=== PATIENT | female | born 1990 | race Caucasian/White ===

== ENCOUNTER 2016-07-10 16:51 | Emergency (ER) | payer MEDICAID ==
--- NOTE | 2016-07-10 17:06 | ER Document Report ---
ED Medical Screen (RME) - General Chief Complaint: Sore Throat Stated Complaint: THROAT PAIN Time seen by provider: 17:06 Mode of Arrival: Ambulatory Information source: Patient Notes: 26-year-old female complaining of right-sided sore throat with painful swallowing x 2 days She has also had a fever. Exudative right tonsil No periTonsillar swelling. I have greeted and performed a rapid initial assessment of this patient. A comprehensive ED assessment, evaluation of the patient, analysis of test results , and completion of the medical decision making process will be conducted by additional ED providers. TRAVEL OUTSIDE OF THE U.S. IN LAST 30 DAYS: No - Related Data Allergies/Adverse Reactions: aspirin [Aspirin] Allergy (Intermediate, Verified 04/05/15 13:07) Facial swelling diphenhydramine HCl [From Benadryl] Allergy (Intermediate, Verified 04/05/15 13: 07) Facial swelling Sulfa (Sulfonamide Antibiotics) Allergy (Verified 04/05/15 13:07) unknown Past Medical History - Past Medical History Cardiac Medical History: Reports: Hx Hypertension - with Pulmonary Medical History: Denies: Hx Tuberculosis Renal/ Medical History: Reports: Hx Kidney Stones GI Medical History: Reports: Hx Gastroesophageal Reflux Disease Musculoskeltal Medical History: Reports Hx Musculoskeletal Trauma Psychiatric Medical History: Reports: Hx Anxiety, Hx Bipolar Disorder Denies: Hx Depression Past Surgical History: Reports: Hx Section, Hx Gynecologic Surgery, Hx Kidney (Renal Surgery) - Immunizations Immunizations up to date: Yes Hx Diphtheria, Pertussis, Tetanus Vaccination: Yes Physical Exam - Vital signs Vitals: Temp Pulse Resp BP Pulse Ox 98.4 F 104 H 14 124/86 H 100 07/10/16 16:54 07/10/16 16:54 07/10/16 16:54 07/10/16 16:54 07/10/16 16:54 Course - Vital Signs Vital signs: Temp Pulse Resp BP Pulse Ox 98.4 F 104 H 14 124/86 H 100 07/10/16 16:54 07/10/16 16:54 07/10/16 16:54 07/10/16 16:54 07/10/16 16:54
--- NOTE | 2016-07-10 18:38 | ER Document Report ---
ED General - General Chief Complaint: Sore Throat Stated Complaint: THROAT PAIN Time seen by provider: 18:20 Mode of Arrival: Ambulatory Information source: Patient Notes: 26-year-old female with 2 day history of subjective fever chills sore throat and pain with swallowing. She reports that she occasionally coughs up some material it's a mixture of her clot and white purulent material. She also reports left ear pain for the past 2 days. Patient denies nausea, vomiting, diarrhea, chest pain, abdominal pain, back pain, or dysuria. Physical Exam: General: Alert, appears well. HEENT: Normocephalic. Atraumatic. PERRLA. Extraocular movements intact left tympanic membrane has slight erythema but good landmarks. Right tympanic membranes clear. Canals clear bilaterally. Oropharynx has bright erythema tonsillar swelling and white exudate bilaterally. No stridor horses drooling. Neck: Supple. Mildly tender adenopathy bilaterally no nuchal rigidity Respiratory: No respiratory distress. Clear and equal breath sounds bilaterally. Cardiovascular: Regular rate and rhythm. Abdominal: Normal Inspection. Soft, non-tender. No distension. Normal Bowel Sounds. Back: Non-tender. No deformity or step off. Extremities: Moves all four extremities. Upper extremities: Normal inspection. Non-tender. Normal color. Normal ROM. Normal temperature. Lower extremities: Normal inspection. Non-tender. No edema. Normal color. Normal ROM. Normal temperature. Neurological: Speech clear mentation normal Psychological: Normal affect. Normal Mood. Skin: Warm. Dry. Normal color. TRAVEL OUTSIDE OF THE [place].S[place] IN LAST 30 DAYS: No - Related Data Allergies/Adverse Reactions: aspirin [Aspirin] Allergy (Intermediate, Verified 04/05/15 13:07) Facial swelling diphenhydramine HCl [From Benadryl] Allergy (Intermediate, Verified 04/05/15 13: 07) Facial swelling Sulfa (Sulfonamide Antibiotics) Allergy (Verified 04/05/15 13:07) unknown Past Medical History - General Information source: Patient - Social History Smoking Status: Current Every Day Smoker Family History: Hypertension, Malignancy, Thyroid Disfunction, Other - kidney disease Patient has suicidal ideation: No Patient has homicidal ideation: No - Past Medical History Cardiac Medical History: Reports: Hx Hypertension - with , Other - Patient reports being told she has an enlarged heart and is having further follow-up of that with her physician but she doesn't know her diagnosis Pulmonary Medical History: Denies: Hx Tuberculosis Renal/ Medical History: Reports: Hx Kidney Stones. Denies: Hx Peritoneal Dialysis GI Medical History: Reports: Hx Gastroesophageal Reflux Disease Musculoskeltal Medical History: Reports Hx Musculoskeletal Trauma Psychiatric Medical History: Reports: Hx Anxiety, Hx Bipolar Disorder Denies: Hx Depression Past Surgical History: Reports: Hx Section, Hx Gynecologic Surgery, Hx Kidney (Renal Surgery) - Immunizations Immunizations up to date: Yes Hx Diphtheria, Pertussis, Tetanus Vaccination: Yes Hx Pneumococcal Vaccination: 02/03/14 Review of Systems - Review of Systems Constitutional: See HPI EENT: See HPI Cardiovascular: denies: Chest pain Respiratory: See HPI Gastrointestinal: denies: Abdominal pain, Diarrhea, Nausea, Vomiting Genitourinary: denies: Burning, Dysuria Female Genitourinary: denies: Musculoskeletal: denies: Back pain Skin: denies: Rash Hematologic/Lymphatic: Enlarged lymph nodes, Swollen glands Neurological/Psychological: denies: Weakness, Numbness Physical Exam - Vital signs Vitals: Temp Pulse Resp BP Pulse Ox 98.4 F 104 H 14 124/86 H 100 07/10/16 16:54 07/10/16 16:54 07/10/16 16:54 07/10/16 16:54 07/10/16 16:54 Course - Re-evaluation Re-evalutation: 07/10/16 18:37 Presentation is consistent with acute pharyngitis and given her reported cardiac history with treat her with antibiotics even if the strep test was negative. She reports an allergy to penicillin - Vital Signs Vital signs: Temp Pulse Resp BP Pulse Ox 98.4 F 104 H 14 124/86 H 100 07/10/16 16:54 07/10/16 16:54 07/10/16 16:54 07/10/16 16:54 07/10/16 16:54 Discharge - Discharge Clinical Impression: Pharyngitis Qualifiers: Pharyngitis/tonsillitis etiology: unspecified etiology Qualified Code(s): J02.9 - Acute pharyngitis, unspecified Condition: Stable Disposition: HOME, SELF-CARE Instructions: Sore Throat ([facility]) Additional Instructions: Follow-up with your physician next week for recheck Prescriptions: Azithromycin [Zithromax 250 mg Tablet] 250 mg PO ASDIR PRN #6 tablet PRN Reason:
[2016-07-10] MEDS ORDERED: IBUPROFEN 800 MG TABLET PO ONE (18:42)
[2016-07-10 19:04] VITALS: BP 118/79
== END 2016-07-10 18:55 | disposition home or self-care (01) ==
LOC: ER 16:51
DX: J02.9 Acute pharyngitis, unspecified (principal); R68.83 Chills (without fever); R05 Cough; H92.02 Otalgia, left ear; F17.210 Nicotine dependence, cigarettes, uncomplicated; Z88.6 Allergy status to analgesic agent; Z88.8 Allergy status to other drugs, medicaments and biological substances; Z88.2 Allergy status to sulfonamides; Z88.0 Allergy status to penicillin
CPT/HCPCS: 99282; J3490

== ENCOUNTER 2016-08-20 14:36 | Emergency (ER) | payer OTHER, MEDICAID ==
[2016-08-20 14:48] VITALS: BP 123/74
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
[2016-08-20] MEDS ORDERED: HYDROCODONE/ACETAMINOPHEN 5-325 MG 6 TAB/DSPK PO PRN (16:15)
== END 2016-08-20 16:22 | disposition home or self-care (01) ==
LOC: ER 14:36
DX: S70.01XA Contusion of right hip, initial encounter (principal); S60.221A Contusion of right hand, initial encounter; S39.012A Strain of muscle, fascia and tendon of lower back, initial encounter; F17.200 Nicotine dependence, unspecified, uncomplicated; V49.40XA Driver injured in collision with unspecified motor vehicles in traffic accident, initial encounter; Z88.6 Allergy status to analgesic agent; Z88.2 Allergy status to sulfonamides; Z87.442 Personal history of urinary calculi; K21.9 Gastro-esophageal reflux disease without esophagitis
CPT/HCPCS: 72110; 99284

== ENCOUNTER 2016-10-04 19:21 | Emergency (ER) | payer MEDICAID, OTHER ==
[2016-10-04 19:49] VITALS: BP 124/84
[2016-10-04] MEDS ORDERED: OXYCODONE-ACETAMINOPHEN 5-325 MG TABLET PO ONE (22:48)
[2016-10-04] MEDS ORDERED: BUPIVACAINE HCL 0.5 % INJ/PF 30 ML SDV INJ ONE (22:48)
[2016-10-04] MEDS ORDERED: PENICILLIN V POTASSIUM 500 MG TABLET PO ONE (22:48)
--- NOTE | 2016-10-04 22:50 | ER Document Report ---
HPI - HPI Patient complains to provider of: toothache Pain Level: 3 Context: 18-year-old female presents with fracture to 3 days ago with severe pain has been taking 800 mg of Motrin every 8 hours with minimal relief in her symptoms. Patient denies any fever, chills, drainage, foul odor, aphasia, dyspnea, inability to tolerate p.o. fluids or solids. NKDA to PCN - CARDIOVASCULAR Cardiovascular: DENIES: Chest pain - REPRODUCTIVE LMP: 09/19/16 Reproductive: DENIES: : - DERM Skin Color: Normal, [place] Past Medical History - Social History Smoking Status: Current Every Day Smoker Chew tobacco use (# tins/day): No Frequency of alcohol use: None Drug Abuse: None Family History: Hypertension, Malignancy, Thyroid Disfunction, Other - kidney disease Patient has suicidal ideation: No Patient has homicidal ideation: No - Past Medical History Cardiac Medical History: Reports: Hx Hypertension - with Pulmonary Medical History: Denies: Hx Tuberculosis Renal/ Medical History: Reports: Hx Kidney Stones. Denies: Hx Peritoneal Dialysis GI Medical History: Reports: Hx Gastroesophageal Reflux Disease Musculoskeltal Medical History: Reports Hx Musculoskeletal Trauma Psychiatric Medical History: Reports: Hx Anxiety, Hx Bipolar Disorder Denies: Hx Depression Past Surgical History: Reports: Hx Section, Hx Gynecologic Surgery, Hx Kidney (Renal Surgery) - Immunizations Immunizations up to date: Yes Hx Diphtheria, Pertussis, Tetanus Vaccination: Yes Hx Pneumococcal Vaccination: 02/03/14 Vertical Provider Document - CONSTITUTIONAL Agree With Documented VS: Yes Exam Limitations: No Limitations General Appearance: WD/WN, No Apparent Distress - INFECTION CONTROL TRAVEL OUTSIDE OF THE [place] IN LAST 30 DAYS: No - HEENT HEENT: Atraumatic, Normal ENT Exam, Normocephalic Mouth Diagram: 1 - fx down to nerve root F-15 no evidence of abscess Notes: Uvula midline. Airway patent. No evidence of tonsillar enlargement, peritonsillar abscess, retropharyngeal abscess. - NECK Neck: Normal Inspection, Other - no Evidence of Chucky's angina. negative: Lymphadenopathy-Left, Lymphadenopathy-Right - RESPIRATORY Respiratory: Breath Sounds Normal, No Respiratory Distress, Chest Non-Tender O2 Sat by Pulse Oximetry: 100 - CARDIOVASCULAR Cardiovascular: Regular Rate, Regular Rhythm, No Murmur Course - Re-evaluation Re-evalutation: 10/05/16 07:30 Received a 5 cc submental Sensorcaine block with complete resolution of her symptoms and no complications. No evidence of peritonsillar retropharyngeal abscess. Receiving prescription for p.o. antibiotics and instruction to follow- up with dentist - Vital Signs Vital signs: Temp Pulse Resp BP Pulse Ox 98.3 F 74 18 124/84 100 10/04/16 19:47 10/04/16 19:47 10/04/16 19:47 10/04/16 19:47 10/04/16 19:47 Procedures - Additional Procedures dental block Additional Procedures: Other - dental block 5 cc sensorcaine buccal block for tooth 15 Discharge - Discharge Clinical Impression: Tooth ache Condition: Good Disposition: HOME, SELF-CARE Instructions: [facility], Penicillin V K (OM), Oral Narcotic Medication (OM), Toothache ([facility]) Additional Instructions: [facility] [address] [place], [place] Saturday mornings, by appointment [facility] [address] [place] [address] [facility] [address] [facility] [address] [facility] [address] [email or web address] [address] [place] [address] Saturday- 8:00am to 5:00 pm Will see patients from other [facility]. Charges based on income and family size and accepts Medicare, Medicaid, and Insurances Will pull molars [facility] [id number] Hours of Operation 8:00 am - 4:30 pm weekdays The following dental offices accept Medicaid: [facility] [place] Dr. Guti[address]rez Dr. King Dr. [place] Dr. Foley Long Fernandez, Franca, and Deanne oral surgery Dr. Childs ([place]) Dr. Monge ([place]) [facility] Drs. Britton and Jonathan ([place]) Dr. Ingram ([place]) [facility] Dr. Poe ([place]) Drs. Gr and ([place]) Medicaid Care Line Prescriptions: Oxycodone HCl/Acetaminophen [Percocet 5-325 mg Tablet] 1 - 2 tab PO Q4H PRN #15 tablet PRN Reason: Penicillin V Potassium [Penicillin Vk 500 mg Tablet] 500 mg PO BID #20 tablet Referrals: JENNIFER SIEGEL MD [Primary Care Provider] - Follow up as needed
== END 2016-10-04 22:56 | disposition home or self-care (01) ==
LOC: ER 19:21
PROC: 3E0T3BZ Introduction of Anesthetic Agent into Peripheral Nerves and Plexi, Percutaneous Approach (ICD-10-PCS; principal; 2016-10-04)
DX: K08.9 Disorder of teeth and supporting structures, unspecified (principal); F17.200 Nicotine dependence, unspecified, uncomplicated; Z87.442 Personal history of urinary calculi; K21.9 Gastro-esophageal reflux disease without esophagitis; Z79.899 Other long term (current) drug therapy
CPT/HCPCS: 99282; 64400; J3490

== ENCOUNTER → 2016-12-03 | Outpatient (CLI) | payer MEDICAID | LOC: LAB 11:26 | PROVIDERS: ATTEND Pediatrics | DX: Z32.01 Encounter for pregnancy test, result positive (principal) | CPT/HCPCS: 36415; 84703 ==

== ENCOUNTER 2016-12-09 12:26 | Emergency (ER) | payer MEDICAID ==
[2016-12-09 12:46] VITALS: BP 137/70
[2016-12-09] MEDS ORDERED: ACETAMINOPHEN SOLN 325 MG/10.15 ML UDCUP PO ONE (13:29)
[2016-12-09] MEDS ORDERED: LIDOCAINE 2% VISCOUS SOLN 20 ML UDCUP PO ONE (13:30)
--- NOTE | 2016-12-09 14:11 | ER Document Report ---
ED ENT - General Chief Complaint: throat pain Stated Complaint: THROAT PAIN,FEVER Time Seen by Provider: 12/09/16 13:23 Notes: Patient is a 18 week 26-year-old female who presents emergency department complaining of sore throat for the past 2 days. Patient admits to difficulty swallowing and swollen throat for the past 2 days. Patient states that she has not seen her primary care provider regarding this. Denies any sick contacts at home. States she is able to tolerate swallowing liquids but solids are too painful. Denies any difficulty breathing. Has been trying to take Tylenol but cannot swallow the pills. Otherwise patient is on Suboxone through pain management. TRAVEL OUTSIDE OF THE [place].S[place] IN LAST 30 DAYS: No - Related Data Allergies/Adverse Reactions: aspirin [Aspirin] Allergy (Intermediate, Verified 12/09/16 12:46) Facial swelling diphenhydramine HCl [From Benadryl] Allergy (Intermediate, Verified 12/09/16 12: 46) Facial swelling Sulfa (Sulfonamide Antibiotics) Allergy (Verified 12/09/16 12:46) unknown Past Medical History - Social History Smoking Status: Current Every Day Smoker Family History: Hypertension, Malignancy, Thyroid Disfunction, Other - kidney disease Patient has suicidal ideation: No Patient has homicidal ideation: No - Past Medical History Cardiac Medical History: Reports: Hx Hypertension - with Pulmonary Medical History: Denies: Hx Tuberculosis Renal/ Medical History: Reports: Hx Kidney Stones. Denies: Hx Peritoneal Dialysis GI Medical History: Reports: Hx Gastroesophageal Reflux Disease Musculoskeltal Medical History: Reports Hx Musculoskeletal Trauma Psychiatric Medical History: Reports: Hx Anxiety, Hx Bipolar Disorder Denies: Hx Depression Past Surgical History: Reports: Hx Section, Hx Gynecologic Surgery, Hx Kidney (Renal Surgery) - Immunizations Immunizations up to date: Yes Hx Diphtheria, Pertussis, Tetanus Vaccination: Yes Hx Pneumococcal Vaccination: 02/03/14 Review of Systems - Review of Systems Constitutional: No symptoms reported EENT: See HPI Cardiovascular: No symptoms reported Respiratory: No symptoms reported Gastrointestinal: No symptoms reported Genitourinary: No symptoms reported Female Genitourinary: No symptoms reported Musculoskeletal: No symptoms reported -: Yes All other systems reviewed and negative Physical Exam - Vital signs Vitals: Temp Pulse Resp BP Pulse Ox 98.9 F 109 H 16 137/70 H 100 12/09/16 12:40 12/09/16 12:40 12/09/16 12:40 12/09/16 12:40 12/09/16 12:40 - Notes Notes: PHYSICAL EXAM GENERAL: Alert, interacts well. HEAD: Normocephalic, atraumatic. EYES: Pupils equal, round, and reactive to light. Extraocular movements intact. ENT: Oral mucosa moist, tongue midline. Uvula midline. Evidence of pharyngeal erythema with tonsillar exudates. Airway patent. No evidence of tonsillar enlargement, peritonsillar abscess, retropharyngeal abscess. NECK: Full range of motion. Supple. Trachea midline. LUNGS: Clear to auscultation bilaterally, no wheezes, rales, or rhonchi. No respiratory distress. HEART: Regular rate and rhythm. No murmurs, gallops, or rubs. ABDOMEN: Soft, nondistended, nontender. No guarding, rebound, or rigidity.. Bowel sounds present in all 4 quadrants. EXTREMITIES: Moves all 4 extremities spontaneously. No edema, radial and dorsalis pedis pulses 2/4 bilaterally. No cyanosis. NEUROLOGICAL: Alert and oriented x4. Normal speech. PSYCH: Normal affect, normal mood. SKIN: Warm, dry, normal turgor. No rashes or lesions noted. Course - Re-evaluation Re-evalutation: 12/09/16 14:29 Patient is a 26-year-old female hemodynamically stable, no acute distress and afebrile. Patient tested positive for strep on her rapid strep test. Patient tolerating fluids without any difficulty no concern at this time for retropharyngeal or peritonsillar abscess. Airway is patent. Patient treated with penicillin G IM and discharged home to take [id number] Tylenol for pain. Patient given strict return precautions and otherwise to follow-up with the health department. Patient agrees with plan. - Vital Signs Vital signs: Temp Pulse Resp BP Pulse Ox 98.9 F 109 H 16 137/70 H 100 12/09/16 12:40 12/09/16 12:40 12/09/16 12:40 12/09/16 12:40 12/09/16 12:40 Discharge - Discharge Clinical Impression: Strep pharyngitis Condition: Good Disposition: HOME, SELF-CARE Instructions: Strep Throat ([facility]) Additional Instructions: You have been treated with a dose of antibiotics in shot form which is all you will require for treatment Please return to emergency department if your symptoms worsen, difficulty tolerating solids and liquids. Please take your medications as prescribed Prescriptions: Lidocaine HCl [Xylocaine Viscous] 5 ml PO Q6H PRN #100 ml PRN Reason: Referrals: [facility]ALTH [facility] [NO LOCAL MD] - Follow up in 3-5 days (For an OB appointment)
[2016-12-09] MEDS ORDERED: PENICILLIN G BENZATHINE 1.2 MILLION UNIT/2 ML DISP.SYRIN IM ONE (14:27)
== END 2016-12-09 15:06 | disposition home or self-care (01) ==
LOC: ER 12:26
DX: O99.512 Diseases of the respiratory system complicating pregnancy, second trimester (principal); J02.0 Streptococcal pharyngitis; O99.332 Smoking (tobacco) complicating pregnancy, second trimester; Z3A.20 20 weeks gestation of pregnancy; Z79.891 Long term (current) use of opiate analgesic
CPT/HCPCS: 99283; 96372; 87880; J3490 ×2; J0561

== ENCOUNTER 2017-02-02 00:06 | Emergency (ER) | payer MEDICAID ==
[2017-02-02] MEDS ORDERED: NORMAL SALINE 1000 ML 1,000 ML IV PRN (00:50)
[2017-02-02] MEDS ORDERED: IBUPROFEN 600 MG TABLET PO ONE (00:50)
--- NOTE | 2017-02-02 00:56 | ER Document Report ---
ED Fever - General Chief Complaint: Fever Stated Complaint: POSSIBLE FEVER AND WEAKNESS Time Seen by Provider: 02/02/17 00:48 Notes: The patient is a 26-year-old female, past medical history multiple UTIs, history of prescription drug abuse (being tapered off Suboxone now), D&C for fetus without heart beat 1 month ago, presents with 4 days of fever up to 103. She is taking Tylenol every 4 hours with improvement of her fever to 101. She has not had much to eat or drink due to fatigue. She denies history of IVDA, rash, nausea, vomiting, abdominal pain, neck stiffness, headache, sore throat, chest pain, shortness of breath, cough, recent travel, dysuria, flank pain, diarrhea or back pain. TRAVEL OUTSIDE OF THE [place] IN LAST 30 DAYS: No - Related Data Allergies/Adverse Reactions: aspirin [Aspirin] Allergy (Intermediate, Verified 12/09/16 12:46) Facial swelling diphenhydramine HCl [From Benadryl] Allergy (Intermediate, Verified 12/09/16 12: 46) Facial swelling Sulfa (Sulfonamide Antibiotics) Allergy (Verified 12/09/16 12:46) unknown Past Medical History - General Information source: Patient - Social History Smoking Status: Current Every Day Smoker Frequency of alcohol use: None Drug Abuse: Prescription drugs - in the past Family History: Hypertension, Malignancy, Thyroid Disfunction, Other - kidney disease Patient has suicidal ideation: No Patient has homicidal ideation: No - Past Medical History Cardiac Medical History: Reports: Hx Hypertension - with Pulmonary Medical History: Denies: Hx Tuberculosis Renal/ Medical History: Reports: Hx Kidney Stones. Denies: Hx Peritoneal Dialysis GI Medical History: Reports: Hx Gastroesophageal Reflux Disease Musculoskeltal Medical History: Reports Hx Musculoskeletal Trauma Psychiatric Medical History: Reports: Hx Anxiety, Hx Bipolar Disorder Denies: Hx Depression Past Surgical History: Reports: Hx Section, Hx Gynecologic Surgery, Hx Kidney (Renal Surgery) - Immunizations Immunizations up to date: Yes Hx Diphtheria, Pertussis, Tetanus Vaccination: Yes Hx Pneumococcal Vaccination: 02/03/14 Review of Systems - Review of Systems Notes: REVIEW OF SYSTEMS: CONSTITUTIONAL: +fevers, -chills EENT: -eye pain, -difficulty swallowing, -nasal congestion CARDIOVASCULAR:-chest pain, -syncope. RESPIRATORY: -cough, -SOB GASTROINTESTINAL: -abdominal pain, -nausea, -vomiting, -diarrhea GENITOURINARY: -dysuria, -hematuria MUSCULOSKELETAL: -back pain, -neck pain SKIN: -rash or skin lesions. HEMATOLOGIC: -easy bruising or bleeding. LYMPHATIC: -swollen, enlarged glands. NEUROLOGICAL: -altered mental status or loss of consciousness, -headache, - neurologic symptoms PSYCHIATRIC: -anxiety, -depression. ALL OTHER SYSTEMS REVIEWED AND NEGATIVE. Physical Exam - Vital signs Vitals: Temp Pulse BP Pulse Ox 101.3 F H 118 H 122/78 98 02/02/17 00:15 02/02/17 00:15 02/02/17 00:15 02/02/17 00:15 - Notes Notes: PHYSICAL EXAMINATION: GENERAL: Well-appearing, well-nourished and in no acute distress. HEAD: Atraumatic, normocephalic. EYES: Pupils equal round and reactive to light, extraocular movements intact, sclera anicteric, conjunctiva are normal. ENT: nares patent, oropharynx clear without exudates. Moist mucous membranes. NECK: Normal range of motion, supple without lymphadenopathy, no neck stiffness LUNGS: Breath sounds clear to auscultation bilaterally and equal. No wheezes rales or rhonchi. HEART: Tachycardia, regular rhythm ABDOMEN: Soft, nontender, normoactive bowel sounds. No guarding, no rebound. No masses appreciated. EXTREMITIES: Normal range of motion, no pitting or edema. No cyanosis. NEUROLOGICAL: Cranial nerves grossly intact. Normal speech, normal gait. Normal sensory and motor exams. PSYCH: Normal mood, normal affect. SKIN: Warm, Dry, normal turgor, no rashes or lesions noted. Course - Re-evaluation Re-evalutation: Patient appears very well. Her chest x-ray does not show any signs of pneumonia. Lactate and blood pressure are normal. She has no history of IVDA and no murmur heard on exam to suggest endocarditis. Patient has dysuria with some WBCs. We will treat her with Macrobid and have her follow-up with her primary care physician tomorrow for further evaluation and treatment. Given very strict return precautions and she understands. - Vital Signs Vital signs: Temp Pulse Resp BP Pulse Ox 101.8 F H 101 H 16 119/62 100 02/02/17 04:12 02/02/17 04:12 02/02/17 04:12 02/02/17 04:12 02/02/17 04:12 - Laboratory Result Diagrams: 02/02/17 00:40 02/02/17 00:40 Laboratory results interpreted by me: 02/02/17 02/02/17 02/02/17 00:40 00:40 00:40 WBC 13.5 H Hgb 11.2 L Hct 33.3 L MCV 79 L MCH 26.4 L RDW 17.5 H Seg Neutrophils % 82.0 H Lymphocytes % 6.8 L Absolute Neutrophils 11.0 H Absolute Monocytes 1.5 H VBG pH 7.49 H VBG pCO2 34.6 L Sodium 135.8 L Potassium 3.1 L BUN 6 L Glucose 121 H Direct Bilirubin 0.5 H Lipase 22.7 L Urine Protein Urine Ketones Urine Blood Urine Urobilinogen Ur Leukocyte Esterase 02/02/17 04:05 WBC Hgb Hct MCV MCH RDW Seg Neutrophils % Lymphocytes % Absolute Neutrophils Absolute Monocytes VBG pH VBG pCO2 Sodium Potassium BUN Glucose Direct Bilirubin Lipase Urine Protein 30 H Urine Ketones 20 H Urine Blood MODERATE H Urine Urobilinogen 4.0 H Ur Leukocyte Esterase TRACE H - Diagnostic Test Radiology reviewed: Image reviewed, Reports reviewed Radiology results interpreted by me: CXR: NAD Discharge - Discharge Clinical Impression: Dysuria Fever Qualifiers: Fever type: unspecified Qualified Code(s): R50.9 - Fever, unspecified Condition: Stable Disposition: HOME, SELF-CARE Additional Instructions: FEVER: Fever is the body's reaction to infection. Fever can also occur with illnesses that create fever-producing substances in the body. By itself, fever is not harmful. It helps the body fight invading germs. We are more concerned with: (1) What's causing the fever? (2) How can we keep you more comfortable until the fever goes away? Early in an illness, symptoms are often so vague that a diagnosis can't be made. If the doctor hasn't identified a clear cause for your fever, you will probably develop new symptoms within the next two days. Contact the doctor if you develop severe worsening headache, rash, chest pain, cough with yellow or green sputum, difficulty breathing, abdominal pain, or other new symptoms. There is no reason to treat a fever if you're comfortable. If the fever is causing aches, headache, and fatigue, you can treat it with ibuprofen (Advil , Nuprin, etc) or acetaminophen (Tylenol). Follow the directions on the bottle. Get plenty of liquids (three quarts per day). Rest. Physical work or sports will raise the temperature higher and make you feel much worse. Dress lightly. If you're chilling, this means the temperature is trying to go higher. Take ibuprofen or acetaminophen. When you feel sweaty and "feverish" the temperature is coming down. If the fever doesn't go away within two days or if you become more ill, call the doctor or return at once for re-examination. NORMAL EXAM AND WORKUP: At this time, with the exception of fever, your examination and workup show no significant abnormality. No significant abnormal physical findings were noted. All laboratory, EKG, and imaging (x-ray, CT scans, ultrasound) studies that were ordered show no significant abnormality. Although your examination and all studies that were ordered showed no significant abnormal finding, there are no examinations and no studies that are 100% accurate. There is always the possibility that some abnormality could exist and not be detected with physical examination or within the limits and capabilities of laboratory and other studies. You should return or follow up as you were instructed on your visit today for further evaluation if your symptoms do not resolve. VIRAL SYNDROME: The physician has diagnosed a likely viral infection. Viruses not only cause "colds," but can cause many different symptoms including generalized aching, fever, headache, cough, diarrhea, nausea, vomiting, and fatigue. The treatment, for the most part, is simply relief of symptoms. This means that antibiotics are usually not given. Rest, fluids, pain medications and, occasionally, medication for the specific symptoms that are most bothersome will be prescribed. Use good handwashing to avoid passing the virus to others. Shared toys should be cleaned with disinfectant. Clean the toilets, sinks, and counter surfaces in bathrooms. Launder clothing in hot water. Contact the physician if you develop any new or unusual symptoms such as severe headache, stiff neck, high fever, chest pain, productive cough, or shortness of breath. You should be rechecked if you don't see marked improvement within seven to 10 days. USE OF ACETAMINOPHEN (Tylenol): Acetaminophen may be taken for pain relief or fever control. It's much safer than aspirin, offering a wider range of "safe" dosages. It is safe during . Some brand names are Tylenol, Panadol, Datril, Anacin 3, Tempra, and Liquiprin. Acetaminophen can be repeated every four hours. The following are maximum recommended dosages: WEIGHT Dose Drops Elixir Chewable( 80mg) (LBS.) drprs=droppers tsp=teaspoon 6 40 mg 0.4 ml (1/2) 6-11 80 mg 0.8 ml (full) tsp 1 tab 12-16 120 mg 1 1/2 drprs 3/4 tsp 1 1/2 tabs 17-23 160 mg 2 drprs 1 tsp 2 tabs 24-30 240 mg 3 drprs 1 1/2 tsp 3 tabs 30-35 320 mg 2 tsp 4 tabs 36-41 360 mg 2 1/4 tsp 4 1/2 tabs 42-47 400 mg 2 1/2 tsp 5 tabs 48-53 480 mg 3 tsp 6 tabs 54-59 520 mg 3 1/4 tsp 6 1/2 tabs 60-64 560 mg 3 1/2 tsp 7 tabs 65-70 600 mg 3 3/4 tsp 7 1/2 tabs 71-76 640 mg 4 tsp 8 tabs 77-82 720 mg 4 1/2 tsp 9 tabs 83-88 800 mg 5 tsp 10 tabs >89 pounds or adults 650 mg to 900 mg Acetaminophen can be repeated every four hours. Maximum dose not to exceed 4000 mg a day. These maximum recommended dosages are slightly higher than the dosages written on the product container, but these dosages are very safe and below the toxic dosage for acetaminophen. FOLLOW-UP CARE: If you have been referred to a physician for follow-up care, call the physician s office for an appointment as you were instructed or within the next two days. If you experience worsening or a significant change in your symptoms, notify the physician immediately or return to the Emergency Department at any time for re-evaluation. URINARY TRACT INFECTION: Your evaluation indicates that you have a urinary tract infection. This is due to germs growing in the bladder. This is a common problem. This infection usually responds quickly to antibiotics. Your antibiotic should be taken exactly as prescribed. Drink plenty of fluids -- three to four quarts a day. Occasionally, a bladder anesthetic will be prescribed to help stop the feeling of urgency until the antibiotic has a chance to clear the infection. This may cause your urine to be dark orange. Certain urine infections require a culture. If the doctor obtained a culture, the results will be back in two days. You should call to see if a change in treatment is needed. A repeat urinalysis after you finish treatment is often recommended. The physician will let you know if further testing is required. Call the doctor if you develop fever, chills, flank pain, inability to urinate, or blood in the urine. ANTIBIOTIC THERAPY: You have been given an antibiotic prescription. It's important that you take all the medication, unless instructed otherwise by your physician. Failure to complete the entire course can result in relapse of your condition. Common side effects of antibiotics include nausea, intestinal cramping, or diarrhea. Women may develop vaginal yeast infections, and babies can get yeast (thrush) in the mouth following the use of antibiotics. Contact your physician if you develop significant side effects from this medication. Allergy to this antibiotic can result in hives, wheezing, faintness, or itching. If symptoms of allergy occur, stop the medication and call the doctor. NITROFURANTOIN (MACRODANTIN, MACROBID): You have received a prescription for nitrofurantoin (Macrodantin). This antibiotic is used for urinary tract infections. Women who are or nursing should notify the physician before taking this medicine. If you have ever had a problem caused by this medication in the past, be sure the physician is aware of it. Common side effects of this medicine include nausea, vomiting, or decreased appetite. Notify your physician if these side effects become severe. Immediately stop this medicine and call the physician if you develop cough , shortness of breath, chest pain, weakness, jaundice (yellow color of the skin and whites of the eyes), or a skin rash. FOLLOW-UP CARE: If you have been referred to a physician for follow-up care, call the physician s office for an appointment as you were instructed or within the next two days. If you experience worsening or a significant change in your symptoms, notify the physician immediately or return to the Emergency Department at any time for re-evaluation. Prescriptions: Nitrofurantoin/Nitrofuran Mac [Macrobid 100 mg Capsule] 1 tab PO BID #10 capsule Referrals: HARSHIL ADAME MD [Primary Care Provider] - Follow up as needed
[2017-02-02 01:01] LABS: ABSOLUTE LYMPHOCYTES (AUTO) 0.9 10^3/uL (0.5-4.7); ABSOLUTE MONOCYTES (AUTO) 1.5 10^3/uL (0.1-1.4); BASOPHILS % (AUTO) 0.1 % (0-2); HEMATOCRIT 33.3 % (36.0-47.0); HEMOGLOBIN 11.2 g/dL (12.0-15.5); HGB HCT DIFFERENCE 0.3; LYMPHOCYTES % (AUTO) 6.8 % (13-45); MEAN CORPUSCULAR HEMOGLOBIN 26.4 pg (27.0-33.4); MEAN CORPUSCULAR HGB CONC 33.6 g/dL (32.0-36.0); MEAN CORPUSCULAR VOLUME 79 fl (80-97); MONOCYTES % (AUTO) 11.1 % (3-13); RED BLOOD COUNT 4.24 10^6/uL (3.72-5.28); RED CELL DISTRIBUTION WIDTH 17.5 % (11.5-14.0); WHITE BLOOD COUNT 13.5 10^3/uL (4.0-10.5)
[2017-02-02 01:11] LABS: VENOUS BLOOD BASE EXCESS 2.7 mmol/L; VENOUS BLOOD HCO3 25.6 mmol/L (20-32); VENOUS BLOOD PCO2 34.6 mmHg (35-63); VENOUS BLOOD PH 7.49 (7.30-7.42)
[2017-02-02 01:16] LABS: ALANINE AMINOTRANSFERASE 26 U/L (9-52); ALBUMIN 4.1 g/dL (3.5-5.0); ALKALINE PHOSPHATASE 89 U/L (38-126); ANION GAP 13 (5-19); ASPARTATE AMINO TRANSFERASE 16 U/L (14-36); BILIRUBIN,DIRECT 0.5 mg/dL (0.0-0.4); BILIRUBIN,TOTAL 0.9 mg/dL (0.2-1.3); BLOOD UREA NITROGEN 6 mg/dL (7-20); CALCIUM 9.1 mg/dL (8.4-10.2); CARBON DIOXIDE 23 mmol/L (22-30); CHLORIDE 100 mmol/L (98-107); CREATINE KINASE 44 U/L (30-135); CREATININE RESULT 0.56 mg/dL (0.52-1.25); GLUCOSE 121 mg/dL (75-110); LIPASE 22.7 U/L (23-300); POTASSIUM 3.1 mmol/L (3.6-5.0); SODIUM 135.8 mmol/L (137-145); TOTAL PROTEIN 7.3 g/dL (6.3-8.2)
[2017-02-02] MEDS ORDERED: POTASSIUM CHLORIDE 10 MEQ TABLET.SA PO ONE (01:22)
[2017-02-02 04:13] VITALS: BP 119/62
[2017-02-02 04:24] LABS: APPEARANCE,URINE SLIGHTLY-CLOUDY; BILIRUBIN,URINE NEGATIVE (NEGATIVE); GLUCOSE, URINE NEGATIVE (NEGATIVE); KETONES,URINE 20 mg/dL (NEGATIVE); LEUKOCYTE ESTERASE,URINE TRACE (NEGATIVE); NITRITE,URINE NEGATIVE (NEGATIVE); PROTEIN,URINE 30 mg/dL (NEGATIVE); URINE SPECIFIC GRAVITY 1.019
--- NOTE | 2017-02-02 04:52 | RADIOLOGY REPORT (SQ) ---
EXAM DESCRIPTION: CHEST SINGLE VIEW COMPLETED DATE/TIME: 02/02/2017 4:18 am REASON FOR STUDY: fever, cough COMPARISON: 6.7.16 EXAM PARAMETERS: NUMBER OF VIEWS: One view. TECHNIQUE: Single frontal radiographic view of the chest acquired. RADIATION DOSE: NA LIMITATIONS: None. FINDINGS: LUNGS AND PLEURA: No opacities, masses or pneumothorax. No pleural effusion. MEDIASTINUM AND HILAR STRUCTURES: No masses. Contour normal. HEART AND VASCULAR STRUCTURES: Heart normal in size. Normal vasculature. BONES: No acute findings. HARDWARE: None in the chest. OTHER: No other significant finding. IMPRESSION: NO ACUTE RADIOGRAPHIC FINDING IN THE CHEST. TECHNICAL DOCUMENTATION: JOB ID: [id number]
[2017-02-02] MEDS ORDERED: ACETAMINOPHEN 325 MG TABLET PO ONE (05:04)
[2017-02-02] MEDS ORDERED: NITROFURANTOIN MONOHYD/M-CRYST 100 MG CAPSULE PO ONE (05:04)
== END 2017-02-02 05:43 | disposition home or self-care (01) ==
LOC: ER 00:06
DX: R30.0 Dysuria (principal); R50.9 Fever, unspecified; R53.1 Weakness; Z79.899 Other long term (current) drug therapy; F17.200 Nicotine dependence, unspecified, uncomplicated
CPT/HCPCS: 99283; 36415; 87086; 82550; 84702; 83690; 85025; 87088; 80053; 81001; 87186; 82803; 83605; 87804; 71010; J3490 ×2; J8499

== ENCOUNTER 2017-02-03 10:29 | Emergency (ER) | payer MEDICAID ==
[2017-02-03] MEDS ORDERED: IBUPROFEN 600 MG TABLET PO ONE (10:51)
[2017-02-03] MEDS ORDERED: NORMAL SALINE 1000 ML 1,000 ML IV ONE (10:51)
--- NOTE | 2017-02-03 10:52 | ER Document Report ---
ED Medical Screen (RME) - General Stated Complaint: FEVER Time Seen by Provider: 02/03/17 10:47 Mode of Arrival: Wheelchair Information source: Patient TRAVEL OUTSIDE OF THE [place] IN LAST 30 DAYS: No - HPI Patient complains to provider of: Fever Notes: 02/03/17 10:52 Patient is a 26-year-old female presenting to the emergency room today complaining of fever 1 weeks duration with body aches, nausea, intermittent chest pain, seen in this emergency room on 02/02/2017 for similar complaints, states that she has not been feeling any better despite taking antibiotics that were prescribed - Related Data Allergies/Adverse Reactions: aspirin [Aspirin] Allergy (Intermediate, Verified 12/09/16 12:46) Facial swelling diphenhydramine HCl [From Benadryl] Allergy (Intermediate, Verified 12/09/16 12: 46) Facial swelling Sulfa (Sulfonamide Antibiotics) Allergy (Verified 12/09/16 12:46) unknown Past Medical History - Past Medical History Cardiac Medical History: Reports: Hx Hypertension - with Pulmonary Medical History: Denies: Hx Tuberculosis Renal/ Medical History: Reports: Hx Kidney Stones. Denies: Hx Peritoneal Dialysis GI Medical History: Reports: Hx Gastroesophageal Reflux Disease Musculoskeltal Medical History: Reports Hx Musculoskeletal Trauma Psychiatric Medical History: Reports: Hx Anxiety, Hx Bipolar Disorder Denies: Hx Depression Past Surgical History: Reports: Hx Section, Hx Gynecologic Surgery, Hx Kidney (Renal Surgery) - Immunizations Immunizations up to date: Yes Hx Diphtheria, Pertussis, Tetanus Vaccination: Yes Physical Exam - Vital signs Vitals: Temp Pulse Resp BP Pulse Ox 101.2 F H 119 H 16 148/81 H 99 02/03/17 10:51 02/03/17 10:51 02/03/17 10:51 02/03/17 10:51 02/03/17 10:51 Course - Vital Signs Vital signs: Temp Pulse Resp BP Pulse Ox 101.2 F H 119 H 16 148/81 H 99 02/03/17 10:51 02/03/17 10:51 02/03/17 10:51 02/03/17 10:51 02/03/17 10:51
[2017-02-03 11:56] LABS: ABSOLUTE EOSINOPHILS # (AUTO) 0.1 10^3/uL (0.0-0.6); ABSOLUTE NEUT (AUTO) 6.4 10^3/uL (1.7-8.2); BASOPHILS % (AUTO) 0.1 % (0-2); EOSINOPHILS % (AUTO) 0.6 % (0-6); HEMATOCRIT 32.7 % (36.0-47.0); HEMOGLOBIN 10.9 g/dL (12.0-15.5); MEAN CORPUSCULAR HEMOGLOBIN 26.4 pg (27.0-33.4); MEAN CORPUSCULAR HGB CONC 33.2 g/dL (32.0-36.0); MEAN CORPUSCULAR VOLUME 79 fl (80-97); MONOCYTES % (AUTO) 11.7 % (3-13); RED BLOOD COUNT 4.11 10^6/uL (3.72-5.28); RED CELL DISTRIBUTION WIDTH 17.1 % (11.5-14.0); SEGMENTED NEUTROPHILS % (AUTO) 75.6 % (42-78); WHITE BLOOD COUNT 8.4 10^3/uL (4.0-10.5)
[2017-02-03 12:12] LABS: ALANINE AMINOTRANSFERASE 24 U/L (9-52); ALBUMIN 3.7 g/dL (3.5-5.0); ALKALINE PHOSPHATASE 85 U/L (38-126); ANION GAP 12 (5-19); ASPARTATE AMINO TRANSFERASE 15 U/L (14-36); BILIRUBIN,DIRECT 0.5 mg/dL (0.0-0.4); BILIRUBIN,TOTAL 0.5 mg/dL (0.2-1.3); BLOOD UREA NITROGEN 5 mg/dL (7-20); CALCIUM 9.1 mg/dL (8.4-10.2); CARBON DIOXIDE 25 mmol/L (22-30); CHLORIDE 102 mmol/L (98-107); CREATINE KINASE 34 U/L (30-135); CREATININE RESULT 0.49 mg/dL (0.52-1.25); GLUCOSE 133 mg/dL (75-110); POTASSIUM 3.2 mmol/L (3.6-5.0); SODIUM 138.7 mmol/L (137-145); TOTAL PROTEIN 6.9 g/dL (6.3-8.2)
[2017-02-03 12:26] LABS: CREATINE KINASE MB < 0.22 ng/mL (<4.55); TROPONIN I < 0.012 ng/mL
[2017-02-03 12:32] LABS: VENOUS BLOOD BASE EXCESS 1.3 mmol/L; VENOUS BLOOD HCO3 26.4 mmol/L (20-32); VENOUS BLOOD PCO2 43.7 mmHg (35-63); VENOUS BLOOD PH 7.4 (7.30-7.42)
--- NOTE | 2017-02-03 12:34 | ER Document Report ---
ED General - General Chief Complaint: Fever Stated Complaint: FEVER Time Seen by Provider: 02/03/17 10:47 Mode of Arrival: Wheelchair Information source: Patient Notes: This is a 26-year-old female who presents to the emergency room with nausea, vomiting, fever, weakness, fatigue for the past 1 week. Patient does state she is has a history of narcolepsy but is currently on no medicines. She is 4 para 3 and had a termination of 1 month ago in [place] for demise. She states that she did well after that termination and has not had any abdominal pain. She does take Suboxone (half a day). She was in the emergency room 1 day ago and was placed on nitrofurantoin for UTI. She presents with persistent symptoms. TRAVEL OUTSIDE OF THE [place] IN LAST 30 DAYS: No - HPI Onset: Last week Onset/Duration: Gradual Quality of pain: Dull Severity: Moderate Pain Level: 2 Associated symptoms: Diarrhea, Fever, Nausea, Vomiting. denies: Chest pain, Shortness of breath Exacerbated by: Denies Relieved by: Denies Similar symptoms previously: Yes Recently seen / treated by doctor: Yes - Related Data Allergies/Adverse Reactions: aspirin [Aspirin] Allergy (Intermediate, Verified 12/09/16 12:46) Facial swelling diphenhydramine HCl [From Benadryl] Allergy (Intermediate, Verified 12/09/16 12: 46) Facial swelling Sulfa (Sulfonamide Antibiotics) Allergy (Verified 12/09/16 12:46) unknown Past Medical History - General Information source: Patient - Social History Smoking Status: Current Every Day Smoker Cigarette use (# per day): No Chew tobacco use (# tins/day): No Frequency of alcohol use: None Drug Abuse: None Lives with: Family Family History: Hypertension, Malignancy, Thyroid Disfunction, Other - kidney disease Patient has suicidal ideation: No Patient has homicidal ideation: No - Past Medical History Cardiac Medical History: Reports: Hx Hypertension - with Pulmonary Medical History: Denies: Hx Tuberculosis Renal/ Medical History: Reports: Hx Kidney Stones. Denies: Hx Peritoneal Dialysis GI Medical History: Reports: Hx Gastroesophageal Reflux Disease Musculoskeltal Medical History: Reports Hx Musculoskeletal Trauma Psychiatric Medical History: Reports: Hx Anxiety, Hx Bipolar Disorder Denies: Hx Depression Past Surgical History: Reports: Hx Section, Hx Gynecologic Surgery, Hx Kidney (Renal Surgery) - Immunizations Immunizations up to date: Yes Hx Diphtheria, Pertussis, Tetanus Vaccination: Yes Hx Pneumococcal Vaccination: 02/03/14 Review of Systems - Review of Systems Constitutional: Chills, Fever EENT: No symptoms reported Cardiovascular: No symptoms reported Respiratory: Cough Gastrointestinal: See HPI Genitourinary: See HPI Female Genitourinary: No symptoms reported. denies: Vaginal discharge - Is, Vaginal bleeding, Vaginal odor Musculoskeletal: No symptoms reported Skin: No symptoms reported Hematologic/Lymphatic: No symptoms reported Neurological/Psychological: See HPI Physical Exam - Vital signs Vitals: Temp Pulse Resp BP Pulse Ox 101.2 F H 119 H 16 148/81 H 99 02/03/17 10:51 02/03/17 10:51 02/03/17 10:51 02/03/17 10:51 02/03/17 10:51 Notes: Physical exam: GENERAL: Does not appear to be in significant distress. She does appear comfortable. HEAD: Atraumatic, normocephalic. EYES: Pupils equal round and reactive to light, extraocular movements intact, sclera anicteric, conjunctiva are normal. ENT: TMs normal, nares patent, oropharynx clear without exudates. Moist mucous membranes. NECK: Normal range of motion, supple without obvious mass or JVD. LUNGS: Breath sounds clear to auscultation bilaterally and equal. No wheezes rales or rhonchi. HEART: Regular rate and rhythm without murmurs, rubs or gallops. ABDOMEN: Soft, normoactive bowel sounds. No tenderness to palpation. No guarding, no rebound. No masses appreciated. EXTREMITIES: Normal range of motion, no pitting or edema. No clubbing or cyanosis. NEUROLOGICAL: There is no photophobia, neck stiffness or any evidence of meningeal irritation. Cranial nerves II through XII grossly intact. Normal speech, moving all extremities. PSYCH: Normal mood, normal affect. SKIN: Warm, Dry, normal turgor, no rashes or lesions noted. 26-year-old female , alert and oriented 3, Course - Re-evaluation Re-evalutation: 02/03/17 14:54 Note: Patient is hemodynamically stable and distress. She does get tearful at times but clinically, she appears okay. The urine culture from 2 days ago is positive for gram-negative rods. Clinically, the patient does not appear septic. While we are awaiting further labs, we will give her some IV ceftriaxone and continue to observe in the ER. 02/03/17 19:29 On repeat exam, patient is comfortable, vital signs stable, she looks good. - Vital Signs Vital signs: Temp Pulse Resp BP Pulse Ox 98.5 F 63 20 105/62 100 02/03/17 17:05 02/03/17 17:05 02/03/17 17:05 02/03/17 17:05 02/03/17 17:05 - Laboratory Result Diagrams: 02/03/17 11:30 02/03/17 11:30 Laboratory results interpreted by me: 02/03/17 02/03/17 11:30 11:30 Hgb 10.9 L Hct 32.7 L MCV 79 L MCH 26.4 L RDW 17.1 H Lymphocytes % 12.0 L Potassium 3.2 L BUN 5 L Creatinine 0.49 L Glucose 133 H Direct Bilirubin 0.5 H - Diagnostic Test Radiology reviewed: Image reviewed, Reports reviewed - Chest x-ray shows no infiltrates or effusions Discharge - Discharge Clinical Impression: UTI Condition: Stable Disposition: HOME, SELF-CARE Instructions: Fever ([facility]), Urinary Tract Infection ([facility]) Additional Instructions: Thank you for choosing [facility] for your care. The examination and treatment you have received in the Emergency Department today has been rendered on an emergency basis only and is not intended to be a substitute for complete medical care. You should contact your follow-up physician as it is important that he or she examine you for any new or remaining problems. If given a copy of any lab tests or radiology reports, please bring them with you when you see your physician. If your problem worsens or new symptoms appear and you are unable to arrange prompt follow-up care, return to the Emergency Department. Specific signs to look out for: Worsening pain, any concerns or getting worse. Any other instructions: Rest, drink plenty of fluids, take antibiotics as previously as prescribed. Take the Phenergan for nausea The [place] is a narcotic. The pain medicine you're taking prescribed as a narcotic. There are several important things you should know about this medicine: 1. This medicine contains Tylenol: It is important that you do not take Tylenol (or acetaminophen) while on this medicine. Tylenol is metabolized by the liver and taking too much Tylenol (acetaminophen) can lay to liver damage and even liver failure. 2. Taking narcotics for too long can lead to physical and mental dependence. Take this medicine only if really needed and in the lowest quantity to achieve pain relief. 3. Do not drink alcohol while on this medicine. Alcohol interacts with narcotics and the combination can be dangerous. 4. Do not drive or operate machinery while on this medicine. 5. Narcotics do cause constipation, so drink plenty of fluids and daily stool softeners. Prescriptions: Promethazine HCl [Phenergan 25 mg Tablet] 25 mg PO Q6H PRN #15 tablet PRN Reason: Referrals: SMITH PETERSEN DO [NO LOCAL MD] - Follow up in 3-5 days
--- NOTE | 2017-02-03 12:58 | EKG REPORT ---
SEVERITY:- ABNORMAL ECG - SINUS RHYTHM REPOL ABNRM SUGGESTS ISCHEMIA, ANT-LAT LEADS : Confirmed by: Christopher Bhandari 03-Feb-2017 12:57:23
[2017-02-03] MEDS: POTASSI CL 20 MEQ/50 ML RIDER 20 MEQ/50 ML RTUPB IV SCH ×2 (13:00→14:29)
[2017-02-03] MEDS ORDERED: NORMAL SALINE 1000 ML 1,000 ML IV PRN (14:23)
[2017-02-03] MEDS ORDERED: CEFTRIAXONE 1 GM/D5W RTU 1 GM/50 ML RTUPB IV ONE (14:54)
--- NOTE | 2017-02-03 15:56 | RADIOLOGY REPORT (SQ) ---
EXAM DESCRIPTION: CHEST PA/LAT COMPLETED DATE/TIME: 02/03/2017 2:41 pm REASON FOR STUDY: fever COMPARISON: AP chest 10/11/2015 EXAM PARAMETERS: NUMBER OF VIEWS: two views TECHNIQUE: Digital Frontal and Lateral radiographic views of the chest acquired. RADIATION DOSE: NA LIMITATIONS: none FINDINGS: LUNGS AND PLEURA: No opacities, masses or pneumothorax. No pleural effusion. MEDIASTINUM AND HILAR STRUCTURES: No masses or contour abnormalities. HEART AND VASCULAR STRUCTURES: Heart normal size. No evidence for failure. BONES: No acute findings. HARDWARE: None in the chest. OTHER: No other significant finding. IMPRESSION: NO SIGNIFICANT RADIOGRAPHIC FINDING IN THE CHEST. TECHNICAL DOCUMENTATION: JOB ID: [id number] [employer]- All Rights Reserved
[2017-02-03] MEDS ORDERED: HYDROCODONE/ACETAMINOPHEN 5-325 MG 6 TAB/DSPK PO PRN (17:00)
[2017-02-03 17:06] VITALS: BP 105/62
== END 2017-02-03 17:28 | disposition home or self-care (01) ==
LOC: ER 10:29
DX: N39.0 Urinary tract infection, site not specified (principal); R50.9 Fever, unspecified; R11.2 Nausea with vomiting, unspecified; R53.1 Weakness; Z88.6 Allergy status to analgesic agent; Z88.2 Allergy status to sulfonamides; Z87.442 Personal history of urinary calculi
CPT/HCPCS: 93005; 99284; 96361; 96365; 96366; 96367; 36415; 87040; 82553; 82550; 83735; 84703; 85025; 85610; 86308; 80053; 84484; 82803; 83605; 71020; 93010; J3490; J3480; J7030; J0696

== ENCOUNTER 2017-03-24 18:15 | Emergency (ER) | payer MEDICAID ==
[2017-03-24] MEDS ORDERED: IBUPROFEN 800 MG TABLET PO ONE (19:46)
[2017-03-24] MEDS ORDERED: DEXAMETHASONE 4 MG TABLET PO ONE (19:46)
[2017-03-24] MEDS ORDERED: LIDOCAINE 2% VISCOUS SOLN 20 ML UDCUP PO ONE (19:47)
[2017-03-24] MEDS ORDERED: PENICILLIN G BENZATHINE 1.2 MILLION UNIT/2 ML DISP.SYRIN IM ONE (19:47)
--- NOTE | 2017-03-24 19:49 | ER Document Report ---
HPI - HPI Patient complains to provider of: Sore throat Onset: Other - 3 days Onset/Duration: Persistent Quality of pain: Stabbing Pain Level: 3 Context: Patient presents with sore throat for the past 3 days. Patient does report fever off and on. Patient denies any cough or cold symptoms. Associated Symptoms: Fever, Sore throat. denies: Nonproductive cough, Productive cough, Earache Exacerbated by: Denies Relieved by: Denies Similar symptoms previously: No Recently seen / treated by doctor: No - ROS ROS below otherwise negative: Yes Systems Reviewed and Negative: Yes All other systems reviewed and negative - CONSTITUTIONAL Constitutional: REPORTS: Fever, Chills - EENT EENT: REPORTS: Sore Throat. DENIES: Ear Pain, Eye problems - CARDIOVASCULAR Cardiovascular: DENIES: Chest pain - RESPIRATORY Respiratory: DENIES: Trouble Breathing, Coughing - GASTROINTESTINAL Gastrointestinal: DENIES: Abdominal Pain, Nausea, Patient vomiting - URINARY Urinary: DENIES: Dysuria, Urgency, Frequency - REPRODUCTIVE Reproductive: DENIES: : - MUSCULOSKELETAL Musculoskeletal: DENIES: Extremity pain - DERM Skin Color: Normal Skin Problems: None Past Medical History - General Information source: Patient - Social History Smoking Status: Current Every Day Smoker Smoking Education Provided: Yes Frequency of alcohol use: None Drug Abuse: None Occupation: none Lives with: Family Family History: Hypertension, Malignancy, Thyroid Disfunction, Other - kidney disease Patient has suicidal ideation: No Patient has homicidal ideation: No - Medical History Medical History: Other - Narcolepsy - Past Medical History Cardiac Medical History: Reports: Hx Hypertension - with Pulmonary Medical History: Denies: Hx Tuberculosis Renal/ Medical History: Reports: Hx Kidney Stones. Denies: Hx Peritoneal Dialysis GI Medical History: Reports: Hx Gastroesophageal Reflux Disease Musculoskeltal Medical History: Reports Hx Musculoskeletal Trauma Psychiatric Medical History: Reports: Hx Anxiety, Hx Bipolar Disorder Denies: Hx Depression Past Surgical History: Reports: Hx Section, Hx Gynecologic Surgery, Hx Kidney (Renal Surgery) - Immunizations Immunizations up to date: Yes Hx Diphtheria, Pertussis, Tetanus Vaccination: Yes Hx Pneumococcal Vaccination: 02/03/14 Vertical Provider Document - CONSTITUTIONAL Agree With Documented VS: Yes Exam Limitations: No Limitations General Appearance: WD/WN, No Apparent Distress - INFECTION CONTROL TRAVEL OUTSIDE OF THE [place] IN LAST 30 DAYS: No - HEENT HEENT: Atraumatic, Normocephalic, Pharyngeal Exudate, Pharyngeal Tenderness, Pharyngeal Erythema - NECK Neck: Lymphadenopathy-Left, Lymphadenopathy-Right - RESPIRATORY Respiratory: Breath Sounds Normal, No Respiratory Distress O2 Sat by Pulse Oximetry: 99 - CARDIOVASCULAR Cardiovascular: Regular Rate, Regular Rhythm, No Murmur - BACK Back: Normal Inspection - MUSCULOSKELETAL/EXTREMETIES Musculoskeletal/Extremeties: MAEW - NEURO Level of Consciousness: Awake, Alert, Appropriate Motor/Sensory: No Motor Deficit - DERM Integumentary: Warm, Dry, No Rash Course - Vital Signs Vital signs: Temp Pulse Resp BP Pulse Ox 99.4 F 107 H 16 131/83 H 99 03/24/17 18:22 03/24/17 18:22 03/24/17 18:22 03/24/17 18:22 03/24/17 18:22 Discharge - Discharge Clinical Impression: Tonsillitis Condition: Stable Disposition: HOME, SELF-CARE Instructions: Corticosteroid Medication ([facility]), Use of Rcce-Pjw-Yppkrwh Ibuprofen ([facility]), Sore Throat ([facility]), Tonsillitis ([facility]) Additional Instructions: Return immediately for any new or worsening symptoms Followup with your primary care provider, call tomorrow to make a followup appointment Prescriptions: Ibuprofen [Motrin 600 Mg Tablet] 600 mg PO Q6H PRN #20 tablet PRN Reason: for pain Referrals: HARSHIL ADAME MD [NO LOCAL MD] - Follow up as needed
[2017-03-24 20:24] VITALS: BP 120/71
== END 2017-03-24 20:20 | disposition home or self-care (01) ==
LOC: ER 18:15
DX: J03.90 Acute tonsillitis, unspecified (principal); F17.200 Nicotine dependence, unspecified, uncomplicated; Z87.442 Personal history of urinary calculi
CPT/HCPCS: 99282; 96372; J3490 ×3; J0561

== ENCOUNTER 2017-07-14 14:49 | Inpatient (IN) | payer MEDICAID ==
[2017-07-14] MEDS ORDERED: NORMAL SALINE 1000 ML 1,000 ML IV ONE ×3 (15:48→18:58)
[2017-07-14] MEDS ORDERED: DEXAMETHASONE SOD PHOS INJ 10 MG/1 ML VIAL IV ONE (15:50)
--- NOTE | 2017-07-14 15:59 | ER Document Report ---
ED Medical Screen (RME) - General Chief Complaint: Fever Stated Complaint: VAGINAL BLEEDING Time Seen by Provider: 07/14/17 15:48 Mode of Arrival: Ambulatory Information source: Patient - 27 yo female 16 weeks woke up with right sided sore throat yesterday, was in bed, fever all day. Today had some spotting this morning after urination, also in the bathtub. Right low back pain (below the CVA). Exudative right tonsil- no a abscess. TRAVEL OUTSIDE OF THE [place] IN LAST 30 DAYS: No - Related Data Allergies/Adverse Reactions: aspirin [Aspirin] Allergy (Intermediate, Verified 07/14/17 14:49) Facial swelling diphenhydramine HCl [From Benadryl] Allergy (Intermediate, Verified 07/14/17 14: 49) Facial swelling Sulfa (Sulfonamide Antibiotics) Allergy (Verified 07/14/17 14:49) unknown Past Medical History - Past Medical History Cardiac Medical History: Reports: Hx Hypertension - with Pulmonary Medical History: Denies: Hx Tuberculosis Renal/ Medical History: Reports: Hx Kidney Stones. Denies: Hx Peritoneal Dialysis GI Medical History: Reports: Hx Gastroesophageal Reflux Disease Musculoskeltal Medical History: Reports Hx Musculoskeletal Trauma Psychiatric Medical History: Reports: Hx Anxiety, Hx Bipolar Disorder Denies: Hx Depression Past Surgical History: Reports: Hx Section, Hx Gynecologic Surgery, Hx Kidney (Renal Surgery) - Immunizations Immunizations up to date: Yes Hx Diphtheria, Pertussis, Tetanus Vaccination: Yes Physical Exam - Vital signs Vitals: Temp Pulse Resp BP Pulse Ox 98.7 F 95 18 112/72 100 07/14/17 15:08 07/14/17 15:08 07/14/17 15:08 07/14/17 15:08 07/14/17 15:08 Course - Vital Signs Vital signs: Temp Pulse Resp BP Pulse Ox 98.7 F 95 18 112/72 100 07/14/17 15:08 07/14/17 15:08 07/14/17 15:08 07/14/17 15:08 07/14/17 15:08
[2017-07-14] MEDS ORDERED: CLINDAMYCIN 600 MG/D5W RTU 600 MG/50 ML RTUPB IV SCH (16:00)
[2017-07-14 16:35] LABS: APPEARANCE,URINE CLOUDY; BILIRUBIN,URINE NEGATIVE (NEGATIVE); COLOR,URINE AMBER; GLUCOSE, URINE NEGATIVE (NEGATIVE); KETONES,URINE NEGATIVE (NEGATIVE); LEUKOCYTE ESTERASE,URINE SMALL (NEGATIVE); NITRITE,URINE POSITIVE (NEGATIVE); PROTEIN,URINE NEGATIVE (NEGATIVE); URINE SPECIFIC GRAVITY 1.029
[2017-07-14 16:44] LABS: ABSOLUTE LYMPHOCYTES (AUTO) 1.1 10^3/uL (0.5-4.7); ABSOLUTE MONOCYTES (AUTO) 0.7 10^3/uL (0.1-1.4); ABSOLUTE NEUT (AUTO) 12.8 10^3/uL (1.7-8.2); BASOPHILS % (AUTO) 0.2 % (0-2); EOSINOPHILS % (AUTO) 0.3 % (0-6); HEMATOCRIT 34.8 % (36.0-47.0); HEMOGLOBIN 11.6 g/dL (12.0-15.5); LYMPHOCYTES % (AUTO) 7.3 % (13-45); MEAN CORPUSCULAR HEMOGLOBIN 27.4 pg (27.0-33.4); MEAN CORPUSCULAR HGB CONC 33.4 g/dL (32.0-36.0); MEAN CORPUSCULAR VOLUME 82 fl (80-97); MONOCYTES % (AUTO) 4.7 % (3-13); PLATELET COUNT 244 10^3/uL (150-450); RED BLOOD COUNT 4.25 10^6/uL (3.72-5.28); RED CELL DISTRIBUTION WIDTH 18.9 % (11.5-14.0); SEGMENTED NEUTROPHILS % (AUTO) 87.5 % (42-78); TOTAL CELLS COUNTED % (AUTO) 100 %; WHITE BLOOD COUNT 14.6 10^3/uL (4.0-10.5)
[2017-07-14 17:04] LABS: ALANINE AMINOTRANSFERASE 22 U/L (9-52); ALBUMIN 3.8 g/dL (3.5-5.0); ALKALINE PHOSPHATASE 86 U/L (38-126); ANION GAP 11 (5-19); ASPARTATE AMINO TRANSFERASE 21 U/L (14-36); BILIRUBIN,DIRECT 0.1 mg/dL (0.0-0.4); BILIRUBIN,TOTAL 0.3 mg/dL (0.2-1.3); BLOOD UREA NITROGEN 4 mg/dL (7-20); CALCIUM 8.9 mg/dL (8.4-10.2); CARBON DIOXIDE 21 mmol/L (22-30); CHLORIDE 105 mmol/L (98-107); GLUCOSE 81 mg/dL (75-110); POTASSIUM 3.6 mmol/L (3.6-5.0); SODIUM 137.2 mmol/L (137-145); TOTAL PROTEIN 6.5 g/dL (6.3-8.2)
--- NOTE | 2017-07-14 17:25 | ER Document Report ---
ED General - General Chief Complaint: Fever Stated Complaint: VAGINAL BLEEDING Time Seen by Provider: 07/14/17 15:48 Mode of Arrival: Ambulatory Information source: Patient Notes: 27 yo female 16 weeks woke up with right sided sore throat yesterday, was in bed, fever all day. Today had some spotting this morning after urination , also in the bathtub. Right low back pain (points to below the CVA). Exudative right tonsil. TRAVEL OUTSIDE OF THE [place] IN LAST 30 DAYS: No - HPI Onset: Yesterday - Related Data Allergies/Adverse Reactions: aspirin [Aspirin] Allergy (Intermediate, Verified 07/14/17 14:49) Facial swelling diphenhydramine HCl [From Benadryl] Allergy (Intermediate, Verified 07/14/17 14: 49) Facial swelling Sulfa (Sulfonamide Antibiotics) Allergy (Verified 07/14/17 14:49) unknown Past Medical History - General Information source: Patient - 27 yo female 16 weeks woke up with right sided sore throat yesterday, was in bed, fever all day. Today had some spotting this morning after urination, also in the bathtub. Right low back pain (below the CVA). Exudative right tonsil- no a abscess. - Social History Smoking Status: Current Every Day Smoker Chew tobacco use (# tins/day): No Frequency of alcohol use: None Drug Abuse: None Family History: Hypertension, Malignancy, Thyroid Disfunction, Other - kidney disease Patient has suicidal ideation: No Patient has homicidal ideation: No - Past Medical History Cardiac Medical History: Reports: Hx Hypertension - with Pulmonary Medical History: Denies: Hx Tuberculosis Renal/ Medical History: Reports: Hx Kidney Stones, Other - Pyelonephritis during 1 of her other pregnancies. Denies: Hx Peritoneal Dialysis GI Medical History: Reports: Hx Gastroesophageal Reflux Disease Musculoskeltal Medical History: Reports Hx Musculoskeletal Trauma Psychiatric Medical History: Reports: Hx Anxiety, Hx Bipolar Disorder Past Surgical History: Reports: Hx Section, Hx Gynecologic Surgery, Hx Kidney (Renal Surgery) - Immunizations Immunizations up to date: Yes Hx Diphtheria, Pertussis, Tetanus Vaccination: Yes Hx Pneumococcal Vaccination: 02/03/14 Review of Systems - Review of Systems Constitutional: See HPI EENT: See HPI Cardiovascular: No symptoms reported Respiratory: No symptoms reported Gastrointestinal: No symptoms reported Genitourinary: No symptoms reported Female Genitourinary: No symptoms reported Musculoskeletal: See HPI Skin: No symptoms reported Hematologic/Lymphatic: No symptoms reported Neurological/Psychological: No symptoms reported Physical Exam - Vital signs Vitals: Temp Pulse Resp BP Pulse Ox 98.7 F 95 18 112/72 100 07/14/17 15:08 07/14/17 15:08 07/14/17 15:08 07/14/17 15:08 07/14/17 15:08 Interpretation: Normal - General General appearance: Alert Notes: Pale - HEENT Head: Normocephalic, Atraumatic Eyes: Normal Conjunctiva: Normal Pupils: PERRL Mucous membranes: Dry Pharynx: Erythema, Tonsillar hypertrophy - Exudative right tonsil Neck: Lymphadenopathy - Bilateral anterior, Supple - Respiratory Respiratory status: No respiratory distress Chest status: Nontender Breath sounds: Normal Chest palpation: Normal - Cardiovascular Rhythm: Regular Heart sounds: Normal auscultation Murmur: No - Abdominal Inspection: Normal Distension: No distension Bowel sounds: Normal Tenderness: Nontender Organomegaly: Mass - On this with a heart tones of 157 in PET - Genitourinary External exam: Normal Notes: qtip in vagina, no blood in vagina. - Back Back: CVA tenderness - right - Extremities General upper extremity: Normal inspection, Nontender, Normal color, Normal ROM , Normal temperature General lower extremity: Normal inspection, Nontender, Normal color, Normal ROM , Normal temperature, Normal weight bearing. No: Haile's sign - Neurological Neuro grossly intact: Yes Cognition: Normal Orientation: AAOx4 [place] Coma Scale Eye Opening: Spontaneous [place] Coma Scale Verbal: Oriented David Coma Scale Motor: Obeys Commands [place] Coma Scale Total: 15 Speech: Normal Motor strength normal: LUE, RUE, LLE, RLE Sensory: Normal - Psychological Associated symptoms: Normal affect, Normal mood - Skin Skin Temperature: Warm Skin Moisture: Dry Skin Color: Normal Skin irregularity: negative: Rash Course - Re-evaluation Re-evalutation: 07/14/17 18:47 Rapid strep is positive, the urinalysis shows positive nitrite with 4 RBCs and 35 WBCs trace of bacteria has been sent for culture. 07/14/17 18:[address] Robert Alves and he will admit overnight to observation to the second floor because she has exudative tonsillitis and pyelonephritis. I spoke to the radiologist dr montez and the ultrasound is normal the placenta is posterior and no sign of previa or abruption. 07/14/17 18:59 - Vital Signs Vital signs: Temp Pulse Resp BP Pulse Ox 97.6 F 92 18 125/75 100 07/14/17 17:33 07/14/17 17:33 07/14/17 15:08 07/14/17 17:33 07/14/17 17:33 - Laboratory Result Diagrams: 07/14/17 16:24 07/14/17 16:24 Laboratory results interpreted by me: 07/14/17 07/14/17 07/14/17 16:05 16:24 16:24 WBC 14.6 H Hgb 11.6 L Hct 34.8 L RDW 18.9 H Seg Neutrophils % 87.5 H Lymphocytes % 7.3 L Absolute Neutrophils 12.8 H Carbon Dioxide 21 L BUN 4 L Creatinine 0.41 L Urine Nitrite POSITIVE H Urine Urobilinogen 2.0 H Ur Leukocyte Esterase SMALL H Discharge - Discharge Clinical Impression: Exudative right tonsillitis strep throat, Pyelonephritis Condition: Stable Disposition: ADMITTED OBSERVATION Admitting Provider: [facility] Admitted: Post
--- NOTE | 2017-07-14 17:48 | RADIOLOGY REPORT (SQ) ---
EXAM DESCRIPTION: U/S OB LIMITED COMPLETED DATE/TIME: 07/14/2017 5:37 pm REASON FOR STUDY: vaginal spotting COMPARISON: None. TECHNIQUE: Limited transabdominal grayscale ultrasound for evaluation of specific requested obstetri nicole parameters. LIMITATIONS: None. FINDINGS: CERVICAL LENGTH: 4.7 Closed. SIXTO: Single deepest pocket is 3.2 cm. FHR: 158 beats per minute. PRESENTATION: Cephalic. OTHER: No other significant findings. IMPRESSION: LIMITED OBSTETRICAL ULTRASOUND WITH MEASURED PARAMETERS DELINEATED ABOVE. Trimester of : Second trimester - 13 weeks 1 day to 27 weeks 6 days. TECHNICAL DOCUMENTATION: JOB ID: [id number] [employer]- All Rights Reserved Reading location - IP/workstation name: [email or web address]
[2017-07-14] MEDS ORDERED: CEFTRIAXONE INJ 1000 MG VIAL IV ONE (18:45)
[2017-07-14] MEDS ORDERED: LIDOCAINE 2% VISCOUS SOLN 20 ML UDCUP PO ONE (18:47)
[2017-07-14] MEDS ORDERED: CLINDAMYCIN 600 MG/D5W RTU 600 MG/50 ML RTUPB IV ONE (19:25)
[2017-07-14] MEDS ORDERED: INFLUENZA ADLT QUAD (36MOS+) 2017-18 VAC 0.5 ML SYR IM PRN (22:51)
[2017-07-14] MEDS: BENZOCAINE/MENTHOL SORE THROAT LOZENGE BUCCAL PRN (23:21)
[2017-07-14] MEDS: ACETAMINOPHEN 325 MG TABLET PO PRN (23:21)
[2017-07-15] MEDS ORDERED: NICOTINE 14 MG/24 HR PATCH.TD24 TD ONE (00:30)
[2017-07-15] MEDS: ZOLPIDEM TARTRATE 5 MG TABLET PO PRN ×2 (00:49→22:48)
[2017-07-15] MEDS ORDERED: NICOTINE 14 MG/24 HR PATCH.TD24 ONE (01:00)
--- NOTE | 2017-07-15 03:13 | PDOC H&P ---
History of Present Illness Admission Date/PCP: 07/14/17 19:21 MICHAEL PAGE MD Patient complains of: , sore throat, pyelonephritis. History of Present Illness: PALOMA HUITRON is a 27 year old female She reports illness and cva tenderness. Past Medical History LMP: 03/27/17 Cardiac Medical History: Reports: Hypertension - during Denies: Congestive Heart Failure, Myocardial Infarction Pulmonary Medical History: Denies: Asthma, Bronchitis, Chronic Obstructive Pulmonary Disease (COPD), Pneumonia, Tuberculosis Neurological Medical History: Denies: Seizures Renal/ Medical History: Reports: Other - Pyelonephritis during 1 of her other pregnancies Denies: End Stage Renal Disease GI Medical History: Denies: Cirrhosis, Gastroesophageal Reflux Disease Musculoskeltal Medical History: Denies: Arthritis Psychiatric Medical History: Reports: Bipolar Disorder - no meds, Depression - no meds Past Surgical History Past Surgical History: Reports: Section Social History Smoking Status: Current Every Day Smoker Frequency of Alcohol Use: None Hx Recreational Drug Use: No Drugs: None Hx Prescription Drug Abuse: No Family History Family History: Hypertension, Malignancy, Thyroid Disfunction, Other - kidney disease Parental Family History Reviewed: Yes Children Family History Reviewed: Yes Sibling(s) Family History Reviewed.: Yes Medication/Allergy Home Medications: Buprenorphine HCl [Subutex 8 mg Sublingual Tablet] 2 tab SL DAILY 07/15/17 Vit/Iron Fum/Folic AC [ Tablet] 1 tab PO DAILY 07/15/17 Allergies/Adverse Reactions: aspirin [Aspirin] Allergy (Intermediate, Verified 07/14/17 14:49) Facial swelling diphenhydramine HCl [From Benadryl] Allergy (Intermediate, Verified 07/14/17 14: 49) Facial swelling Sulfa (Sulfonamide Antibiotics) Allergy (Verified 07/14/17 14:49) unknown Physical Exam - Physical Exam Vital Signs: Temp Pulse Resp BP Pulse Ox 98.8 F 89 18 107/55 L 96 07/14/17 22:15 07/14/17 22:15 07/14/17 22:15 07/14/17 22:15 07/14/17 22:15 Intake & Output 07/13/17 07/14/17 07/15/17 05:59 06:59 06:59 Weight 64.8 kg Result Impressions: Obstetrics Ultrasound 07/14/17 15:51 IMPRESSION: LIMITED OBSTETRICAL ULTRASOUND WITH MEASURED PARAMETERS DELINEATED ABOVE. Trimester of : Second trimester - 13 weeks 1 day to 27 weeks 6 days. Assessment & Plan - Diagnosis (1) Pyelonephritis affecting in second trimester Is this a current diagnosis for this admission?: Yes Plan: begin iv fluids and Rhocephin. - Time Time Spent: 30 to 50 Minutes Critical Time spent with patient: Less than 15 minutes Smoking Cessation Education: 3 to 10 minutes Medications reviewed and adjusted accordingly: Yes Anticipated discharge: Home Within: within 48 hours - Plan Summary Plan Summary: Begin iv fluids and antibiotics
[2017-07-15] MEDS: BENZOCAINE/MENTHOL SORE THROAT LOZENGE BUCCAL PRN ×3 (04:56→21:00)
[2017-07-15] MEDS ORDERED: CEFTRIAXONE INJ 1000 MG VIAL ONE (05:43)
[2017-07-15] MEDS ORDERED: CEFTRIAXONE 1 GM/D5W RTU 1 GM/50 ML RTUPB IV SCH (06:00)
[2017-07-15] MEDS: ACETAMINOPHEN 325 MG TABLET PO PRN ×3 (06:17→21:01)
--- NOTE | 2017-07-15 07:18 | Physician Advisory Note ---
Physician Advisor ProgressNote .: [facility] I have reviewed the medical record for this patient. Physician Advisor Statement: Please consider documenting, if you agree: 1. "Strep pharyngitis" 2. Medical necessity: if pt is not sufficiently improved for d/c 07/15, please document clinical reasons/concerns, & then may change to Inpatient status. Status: Appropriately Obs to start. See above. Thanks! CK
[2017-07-15 08:22] LABS: ABSOLUTE LYMPHOCYTES (AUTO) 1.4 10^3/uL (0.5-4.7); ABSOLUTE MONOCYTES (AUTO) 0.6 10^3/uL (0.1-1.4); BASOPHILS % (AUTO) 0.1 % (0-2); HEMATOCRIT 31.7 % (36.0-47.0); HEMOGLOBIN 10.3 g/dL (12.0-15.5); LYMPHOCYTES % (AUTO) 10.7 % (13-45); MEAN CORPUSCULAR HEMOGLOBIN 27.1 pg (27.0-33.4); MEAN CORPUSCULAR HGB CONC 32.6 g/dL (32.0-36.0); MEAN CORPUSCULAR VOLUME 83 fl (80-97); MONOCYTES % (AUTO) 4.7 % (3-13); PLATELET COUNT 261 10^3/uL (150-450); RED BLOOD COUNT 3.82 10^6/uL (3.72-5.28); RED CELL DISTRIBUTION WIDTH 19.5 % (11.5-14.0); SEGMENTED NEUTROPHILS % (AUTO) 84.5 % (42-78); TOTAL CELLS COUNTED % (AUTO) 100 %
[2017-07-15] MEDS: RINGERS SOLUTION,LACTATED 1,000 ML IV PRN (16:15)
[2017-07-15] MEDS: CEFTRIAXONE SODIUM 1,000 MG in NORMAL SALINE 100 ML IV SCH (17:48)
[2017-07-15] MEDS: NICOTINE 14 MG/24 HR PATCH.TD24 TD SCH (21:02)
[2017-07-16] MEDS: RINGERS SOLUTION,LACTATED 1,000 ML IV PRN (01:15)
[2017-07-16] MEDS: ACETAMINOPHEN 325 MG TABLET PO PRN ×2 (03:08→08:26)
[2017-07-16] MEDS: CEFTRIAXONE SODIUM 1,000 MG in NORMAL SALINE 100 ML IV SCH ×2 (05:31→17:42)
--- NOTE | 2017-07-16 15:13 | PDOC PROGRESS REPORT ---
Subjective Progress Note for:: 07/16/17 Subjective:: pt indicates still having quite a bit of pain but desires to discharge home to care for children. Reason For Visit: PYLO, STREP Physical Exam - Physical Exam Vital Signs: Temp Pulse Resp BP Pulse Ox 98.2 F 91 20 101/60 95 07/16/17 11:40 07/16/17 11:40 07/16/17 11:40 07/16/17 11:40 07/16/17 11:40 Intake & Output 07/15/17 07/16/17 07/17/17 06:59 06:59 06:59 Intake Total 2200 Balance 2200 General appearance: PRESENT: mild distress, well-developed, well-nourished - + CVA tenderness bilaterally. +guarding GI/Abdominal exam: PRESENT: soft - gravid abdomen below umbilicus Neurological exam: PRESENT: alert, awake Result Laboratory Results: 07/15/17 08:06 Impressions: Obstetrics Ultrasound 07/14/17 15:51 IMPRESSION: LIMITED OBSTETRICAL ULTRASOUND WITH MEASURED PARAMETERS DELINEATED ABOVE. Trimester of : Second trimester - 13 weeks 1 day to 27 weeks 6 days. Assessment & Plan - Diagnosis (1) Strep pharyngitis Is this a current diagnosis for this admission?: Yes (2) Qualifiers: Weeks of gestation: 16 weeks Qualified Code(s): Z3A.16 - 16 weeks gestation of Is this a current diagnosis for this admission?: Yes (3) Pyelonephritis affecting in second trimester Is this a current diagnosis for this admission?: Yes - Inpatient Certification Based on my medical assessment, after consideration of the patient's comorbidities, presenting symptoms, or acuity I expect that the services needed warrant INPATIENT care.: Yes I certify that my determination is in accordance with my understanding of Medicare's requirements for reasonable and necessary INPATIENT services [42 CFR 412.3e].: Yes Medical Necessity: Need Close Monitoring Due to Risk of Patient Decompensation - increased risks for ARDS for patients with pyelonephritis. 48 hours of antibiotics and decreasing leukocytosis, Need For IV Fluids, Need for Pain Control, Need for IV Antibiotics - Plan Summary Plan Summary: plan to complete 48 hours of IV antibiotics for pyleonephritis and pharyngitis. Recheck CBC for WBC trend in AM.
[2017-07-16] MEDS: OXYCODONE-ACETAMINOPHEN 5-325 MG TABLET PO PRN ×2 (16:39→20:58)
[2017-07-16] MEDS: NICOTINE 14 MG/24 HR PATCH.TD24 TD SCH (21:14)
[2017-07-17] MEDS: OXYCODONE-ACETAMINOPHEN 5-325 MG TABLET PO PRN ×2 (01:19→06:34)
[2017-07-17] MEDS: CEFTRIAXONE SODIUM 1,000 MG in NORMAL SALINE 100 ML IV SCH (05:05)
[2017-07-17 06:41] LABS: ABSOLUTE EOSINOPHILS # (AUTO) 0.2 10^3/uL (0.0-0.6); ABSOLUTE MONOCYTES (AUTO) 0.5 10^3/uL (0.1-1.4); ABSOLUTE NEUT (AUTO) 3.6 10^3/uL (1.7-8.2); BASOPHILS % (AUTO) 0.4 % (0-2); EOSINOPHILS % (AUTO) 2.6 % (0-6); HEMATOCRIT 27.4 % (36.0-47.0); HEMOGLOBIN 9.2 g/dL (12.0-15.5); LYMPHOCYTES % (AUTO) 31.8 % (13-45); MEAN CORPUSCULAR HEMOGLOBIN 27.6 pg (27.0-33.4); MEAN CORPUSCULAR HGB CONC 33.4 g/dL (32.0-36.0); MEAN CORPUSCULAR VOLUME 82 fl (80-97); MONOCYTES % (AUTO) 8.2 % (3-13); PLATELET COUNT 225 10^3/uL (150-450); RED BLOOD COUNT 3.32 10^6/uL (3.72-5.28); RED CELL DISTRIBUTION WIDTH 19.1 % (11.5-14.0); TOTAL CELLS COUNTED % (AUTO) 100 %; WHITE BLOOD COUNT 6.3 10^3/uL (4.0-10.5)
--- NOTE | 2017-07-17 09:12 | PDOC PROGRESS REPORT ---
Subjective Progress Note for:: 07/17/17 Reason For Visit: PYLO, STREP Physical Exam - Physical Exam Vital Signs: Temp Pulse Resp BP Pulse Ox 97.9 F 92 16 116/65 98 07/17/17 08:32 07/17/17 08:32 07/17/17 08:32 07/17/17 08:32 07/17/17 08:32 Intake & Output 07/16/17 07/17/17 07/18/17 06:59 06:59 06:59 Intake Total 2200 Balance 2200 General appearance: PRESENT: no acute distress, well-developed, well-nourished Head exam: PRESENT: atraumatic, normocephalic Eye exam: PRESENT: conjunctiva pink, EOMI, PERRLA. ABSENT: scleral icterus Ear exam: PRESENT: normal external ear exam Mouth exam: PRESENT: moist, tongue midline Neck exam: PRESENT: full ROM. ABSENT: carotid bruit, JVD, lymphadenopathy, thyromegaly Respiratory exam: PRESENT: clear to auscultation aj Cardiovascular exam: PRESENT: RRR. ABSENT: diastolic murmur, rubs, systolic murmur Pulses: PRESENT: normal dorsalis pedis pul, +2 pedal pulses bilateral Vascular exam: PRESENT: normal capillary refill GI/Abdominal exam: PRESENT: normal bowel sounds, soft. ABSENT: distended, guarding, mass, organolmegaly, rebound, tenderness Rectal exam: PRESENT: deferred Extremities exam: PRESENT: full ROM. ABSENT: calf tenderness, clubbing, pedal edema Musculoskeletal exam: PRESENT: ambulatory Neurological exam: PRESENT: alert, awake, oriented to person, oriented to place , oriented to time, oriented to situation, CN II-XII grossly intact. ABSENT: motor sensory deficit Psychiatric exam: PRESENT: appropriate affect, normal mood. ABSENT: homicidal ideation, suicidal ideation Skin exam: PRESENT: dry, intact, warm. ABSENT: cyanosis, rash Result Laboratory Results: 07/17/17 06:29 07/17/17 06:29 WBC 6.3 RBC 3.32 L Hgb 9.2 L Hct 27.4 L MCV 82 MCH 27.6 MCHC 33.4 RDW 19.1 H Plt Count 225 Seg Neutrophils % 57.0 Lymphocytes % 31.8 Monocytes % 8.2 Eosinophils % 2.6 Basophils % 0.4 Absolute Neutrophils 3.6 Absolute Lymphocytes 2.0 Absolute Monocytes 0.5 Absolute Eosinophils 0.2 Absolute Basophils 0.0 Impressions: Obstetrics Ultrasound 07/14/17 15:51 IMPRESSION: LIMITED OBSTETRICAL ULTRASOUND WITH MEASURED PARAMETERS DELINEATED ABOVE. Trimester of : Second trimester - 13 weeks 1 day to 27 weeks 6 days. Assessment & Plan - Diagnosis (1) Qualifiers: Weeks of gestation: 16 weeks Qualified Code(s): Z3A.16 - 16 weeks gestation of Is this a current diagnosis for this admission?: Yes (2) Pyelonephritis affecting in second trimester Is this a current diagnosis for this admission?: Yes (3) Strep pharyngitis Is this a current diagnosis for this admission?: Yes - Plan Summary Plan Summary: d/c f/u HD
--- NOTE | 2017-07-17 09:19 | PDOC DISCHARGE SUMMARY ---
Final Diagnosis Discharge Date: 07/17/17 - Final Diagnosis (1) Is this a current diagnosis for this admission?: Yes (2) Pyelonephritis affecting in second trimester Is this a current diagnosis for this admission?: Yes (3) Strep pharyngitis Is this a current diagnosis for this admission?: Yes Discharge Data - Discharge Medication Home Medications: Buprenorphine HCl [Subutex 8 mg Sublingual Tablet] 2 tab SL DAILY 07/15/17 Vit/Iron Fum/Folic AC [ Tablet] 1 tab PO DAILY 07/15/17 Reason(s) for Admission: Other - 16 weeks pyelonephritis Procedures: None - Diagnosis Test Laboratory: Temp Pulse Resp BP Pulse Ox 97.9 F 92 16 116/65 98 07/17/17 08:32 07/17/17 08:32 07/17/17 08:32 07/17/17 08:32 07/17/17 08:32 07/15/17 07/17/17 08:06 06:29 RBC 3.82 3.32 L Hgb 10.3 L 9.2 L Hct 31.7 L 27.4 L - Discharge information/Instructions Discharge Activity: Activity As Tolerated Discharge Diet: As Tolerated Disposition: HOME, SELF-CARE Follow up with: [facility] in: 1 - f/u HD
[2017-07-17 10:51] VITALS: BP 118/58
== END 2017-07-17 11:10 | disposition home or self-care (01) | DRG 775 ==
LOC: ER 14:49 → EH 19:21 → 2S 22:15 → OBSVTOIN 07-15 08:00
PROVIDERS: ADMIT Obstetrics & Gynecology; ATTEND Obstetrics & Gynecology
DX: O23.02 Infections of kidney in pregnancy, second trimester (principal); O99.334 Smoking (tobacco) complicating childbirth; F17.200 Nicotine dependence, unspecified, uncomplicated; O99.512 Diseases of the respiratory system complicating pregnancy, second trimester; J02.0 Streptococcal pharyngitis; Z3A.16 16 weeks gestation of pregnancy; Z82.49 Family history of ischemic heart disease and other diseases of the circulatory system; Z88.2 Allergy status to sulfonamides; Z88.6 Allergy status to analgesic agent; Z88.8 Allergy status to other drugs, medicaments and biological substances
CPT/HCPCS: 36415; 76815; 80053; 81001; 85025; 86308; 86850; 86900; 86901; 87086; 87088; 87186; 87880; 96365; 96367; 96375; 99285; G0378; J0696; J1100; J3490; J7030; J7120

== ENCOUNTER 2017-10-07 17:52 | Outpatient (CLI) | payer MEDICAID ==
--- NOTE | 2017-10-07 19:51 | RADIOLOGY REPORT (SQ) ---
EXAM DESCRIPTION: U/S OB LIMITED COMPLETED DATE/TIME: 10/07/2017 7:41 pm REASON FOR STUDY: s/p fall, vaginal bleeding with lac, eval placent COMPARISON: 07/14/2017 TECHNIQUE: Limited transabdominal grayscale ultrasound for evaluation of specific requested obstetri nicole parameters. LIMITATIONS: None. FINDINGS: CERVICAL LENGTH: 3.5 cm. Closed. FHR: 157 beats per minute. PRESENTATION: Cephalic. OTHER: Anterior placenta without abruption. IMPRESSION: LIMITED OBSTETRICAL ULTRASOUND WITH MEASURED PARAMETERS DELINEATED ABOVE. NO ABRUPTION IDENTIFIED. Trimester of : Third trimester - 28 weeks to delivery. TECHNICAL DOCUMENTATION: JOB ID: [id number] [employer]- All Rights Reserved Reading location - IP/workstation name: [email or web address]
[2017-10-07] MEDS ORDERED: BENZOCAINE/MENTHOL AEROSOL SPRAY 56 ML TOP PRN (20:18)
[2017-10-07 20:23] LABS: APPEARANCE,URINE CLOUDY; BILIRUBIN,URINE NEGATIVE (NEGATIVE); COLOR,URINE AMBER; GLUCOSE, URINE NEGATIVE (NEGATIVE); KETONES,URINE TRACE mg/dL (NEGATIVE); LEUKOCYTE ESTERASE,URINE LARGE (NEGATIVE); NITRITE,URINE POSITIVE (NEGATIVE); PROTEIN,URINE 30 mg/dL (NEGATIVE); URINE SPECIFIC GRAVITY 1.019; UROBILINOGEN,URINE NEGATIVE mg/dL (<2.0)
[2017-10-07 20:36] LABS: URINE AMPHETAMINES SCREEN NEGATIVE; URINE BARBITURATES SCREEN NEGATIVE; URINE BENZODIAZEPINES SCREEN NEGATIVE; URINE COCAINE SCREEN NEGATIVE; URINE MARIJUANA (THC) SCREEN NEGATIVE; URINE METHADONE SCREEN NEGATIVE; URINE PHENCYCLIDINE SCREEN NEGATIVE
== END 2017-10-07 20:23 | disposition home or self-care (01) ==
LOC: LC 17:52
PROVIDERS: ATTEND Obstetrics & Gynecology
PROC: 4A1HXCZ Monitoring of Products of Conception, Cardiac Rate, External Approach (ICD-10-PCS; principal; 2017-10-07)
DX: O47.03 False labor before 37 completed weeks of gestation, third trimester (principal); O9A.213 Injury, poisoning and certain other consequences of external causes complicating pregnancy, third trimester; S31.41XA Laceration without foreign body of vagina and vulva, initial encounter; Z3A.28 28 weeks gestation of pregnancy; W19.XXXA Unspecified fall, initial encounter
CPT/HCPCS: 59899; 87086; 87088; 81001; 87186; 80307; 76815; J3490

== ENCOUNTER 2017-10-11 22:54 | Outpatient (CLI) | payer MEDICAID ==
[2017-10-11] MEDS ORDERED: ONDANSETRON HCL INJ/PF 4 MG/2 ML SDV IV PRN (23:06)
[2017-10-11] MEDS ORDERED: ONDANSETRON 4 MG TAB.RAPDIS ONE (23:08)
[2017-10-11] MEDS ORDERED: ONDANSETRON 4 MG TAB.RAPDIS PO ONE (23:08)
[2017-10-12 00:05] LABS: APPEARANCE,URINE CLOUDY; BILIRUBIN,URINE NEGATIVE (NEGATIVE); COLOR,URINE YELLOW; GLUCOSE, URINE NEGATIVE (NEGATIVE); KETONES,URINE 80 mg/dL (NEGATIVE); LEUKOCYTE ESTERASE,URINE TRACE (NEGATIVE); NITRITE,URINE POSITIVE (NEGATIVE); PROTEIN,URINE NEGATIVE (NEGATIVE); URINE SPECIFIC GRAVITY 1.021; UROBILINOGEN,URINE NEGATIVE mg/dL (<2.0)
[2017-10-12 00:24] LABS: URINE AMPHETAMINES SCREEN NEGATIVE; URINE BARBITURATES SCREEN NEGATIVE; URINE BENZODIAZEPINES SCREEN NEGATIVE; URINE COCAINE SCREEN NEGATIVE; URINE MARIJUANA (THC) SCREEN NEGATIVE; URINE METHADONE SCREEN NEGATIVE; URINE PHENCYCLIDINE SCREEN NEGATIVE
== END 2017-10-11 23:53 | disposition home or self-care (01) ==
LOC: LC 22:54
PROVIDERS: ATTEND Student in an Organized Health Care Education/Training Program
PROC: 4A1HXCZ Monitoring of Products of Conception, Cardiac Rate, External Approach (ICD-10-PCS; principal; 2017-10-11)
DX: O47.03 False labor before 37 completed weeks of gestation, third trimester (principal); O21.2 Late vomiting of pregnancy; Z3A.28 28 weeks gestation of pregnancy
CPT/HCPCS: 59899; 81001; 80307; S0119

== ENCOUNTER 2017-10-24 16:22 | Emergency (ER) | payer MEDICAID ==
[2017-10-24 16:34] VITALS: BP 122/60
[2017-10-24] MEDS ORDERED: PENICILLIN V POTASSIUM 500 MG TABLET PO ONE (17:21)
[2017-10-24] MEDS ORDERED: LIDOCAINE 2% VISCOUS SOLN 20 ML UDCUP PO ONE (17:21)
--- NOTE | 2017-10-24 17:26 | ER Document Report ---
ED Oral Problem - General Chief Complaint: Toothache Stated Complaint: TOOTH PAIN Time Seen by Provider: 10/24/17 17:11 Mode of Arrival: Ambulatory Information source: Patient Notes: 27-year-old female presents to ED for dental pain. She is 31 weeks and states that she cannot get her teeth fixed because she cannot be put sleep to have her teeth fixed. She states that these have been bad for a long time and she is just not available get him fixed. She has multiple teeth on the upper jaw 9 through 13+ some on the bottom that are all decayed. TRAVEL OUTSIDE OF THE [place] IN LAST 30 DAYS: No - HPI Patient complains to provider of: Toothache Onset: Other Onset: Gradual - Panic Quality of pain: Achy, Throbbing Severity: Moderate Pain Level: 3 - Related Data Allergies/Adverse Reactions: aspirin [Aspirin] Allergy (Intermediate, Verified 10/07/17 18:18) Facial swelling diphenhydramine HCl [From Benadryl] Allergy (Intermediate, Verified 10/07/17 18: 18) Facial swelling Sulfa (Sulfonamide Antibiotics) Allergy (Verified 10/07/17 18:18) unknown Past Medical History - Social History Smoking Status: Current Every Day Smoker Chew tobacco use (# tins/day): No Frequency of alcohol use: None Drug Abuse: None Family History: Hypertension, Malignancy, Thyroid Disfunction, Other - kidney disease Patient has suicidal ideation: No Patient has homicidal ideation: No - Past Medical History Cardiac Medical History: Reports: Hx Hypertension - during Denies: Hx Congestive Heart Failure, Hx Heart Attack Pulmonary Medical History: Denies: Hx Asthma, Hx Bronchitis, Hx COPD, Hx Pneumonia, Hx Tuberculosis Neurological Medical History: Denies: Hx Seizures Renal/ Medical History: Denies: Hx End Stage Renal Disease, Hx Kidney Stones, Hx Peritoneal Dialysis GI Medical History: Denies: Hx Cirrhosis, Hx Gastroesophageal Reflux Disease, Hx Ulcer Musculoskeltal Medical History: Denies Hx Arthritis, Denies Hx Multiple Sclerosis, Reports Hx Musculoskeletal Trauma Psychiatric Medical History: Reports: Hx Anxiety, Hx Bipolar Disorder - no meds , Hx Depression - no meds Denies: Hx Schizophrenia Past Surgical History: Reports: Hx Section, Hx Gynecologic Surgery, Hx Kidney (Renal Surgery) - Immunizations Immunizations up to date: Yes Hx Diphtheria, Pertussis, Tetanus Vaccination: Yes Hx Pneumococcal Vaccination: 02/03/14 Review of Systems - Review of Systems Constitutional: No symptoms reported EENT: Mouth pain, Dental problem Cardiovascular: No symptoms reported Respiratory: No symptoms reported Gastrointestinal: No symptoms reported Genitourinary: No symptoms reported Female Genitourinary: No symptoms reported Musculoskeletal: No symptoms reported Skin: No symptoms reported Hematologic/Lymphatic: No symptoms reported Neurological/Psychological: No symptoms reported Physical Exam - Vital signs Vitals: Temp Pulse Resp BP Pulse Ox 98.5 F 80 16 122/60 97 10/24/17 16:33 10/24/17 16:33 10/24/17 16:33 10/24/17 16:33 10/24/17 16:33 Interpretation: Normal - General General appearance: Appears well, Alert - HEENT Head: Normocephalic, Atraumatic Eyes: Normal Pupils: PERRL Ears: Normal External canal: Normal Tympanic membrane: Normal Sinus: Normal Nasal: Normal Mouth/Lips: Caries Teeth diagram: 1 - Multiple dental cavities in this area plus throughout the rest of the mouth. Worst pain is in this area of the mouth. Patient is 31 weeks . Pharynx: Normal Neck: Anterior cervical chain - Respiratory Respiratory status: No respiratory distress Chest status: Nontender Breath sounds: Normal Chest palpation: Normal - Cardiovascular Rhythm: Regular Heart sounds: Normal auscultation Murmur: No - Abdominal Inspection: Gravid female - 31 weeks , has appointment at [facility] tomorrow, denies any abdominal pain discomfort, states baby is moving as usual. Distension: No distension Bowel sounds: Normal Tenderness: Nontender Organomegaly: No organomegaly - Back Back: Normal, Nontender - Extremities General upper extremity: Normal inspection, Nontender, Normal color, Normal ROM , Normal temperature General lower extremity: Normal inspection, Nontender, Normal color, Normal ROM , Normal temperature, Normal weight bearing. No: Haile's sign - Neurological Neuro grossly intact: Yes Cognition: Normal Orientation: AAOx4 David Coma Scale Eye Opening: Spontaneous David Coma Scale Verbal: Oriented [place] Coma Scale Motor: Obeys Commands David Coma Scale Total: 15 Speech: Normal Motor strength normal: LUE, RUE, LLE, RLE Sensory: Normal - Psychological Associated symptoms: Normal affect, Normal mood - Skin Skin Temperature: Warm Skin Moisture: Dry Skin Color: Normal Course - Re-evaluation Re-evalutation: 10/24/17 19:57 Dr. Crisostomo was consulted patient was treated with Penicillin VK and viscous lidocaine. He states that patient should come to see him tomorrow. He states there is no reason that she cannot have dental care and including pulling teeth if needed. Presentation is most consistent with likely an infected tooth. Airway is patent. Vitals within normal limits. Patient is able swallow without any difficulty. There is no significant facial swelling. No evidence of Chucky angina, apical abscess, or airway obstruction. Patient will be started on antibiotics. I've instructed to follow-up with dentistry as earliest ability for definitive management. At this time will discharge with return precautions and follow-up recommendations. Verbal discharge instructions given a the bedside and opportunity for questions given. Medication warnings reviewed. Patient is in agreement with this plan and has verbalized understanding of return precautions and the need for primary care follow-up in the next 24-72 hours. - Vital Signs Vital signs: Temp Pulse Resp BP Pulse Ox 98.5 F 80 16 122/60 97 10/24/17 16:33 10/24/17 16:33 10/24/17 16:33 10/24/17 16:33 10/24/17 16:33 Discharge - Discharge Clinical Impression: Pain due to dental caries Condition: Stable Disposition: HOME, SELF-CARE Additional Instructions: TOOTHACHE: Your pain is due to dental decay. The tooth must be repaired in order for you to feel better. You will, therefore, be referred to a dentist. We do not have dentists on the staff at [facility]. Severe swelling or drainage around a tooth usually means a dental abscess. This also requires evaluation and treatment by the dentist, but antibiotics may be prescribed while awaiting dental treatment. You should be rechecked immediately if you develop major swelling of the face, increasing pain, a lump in the jaw or gums, headache, difficulty swallowing, or fever. PENICILLIN V K: You have been given a prescription for Penicillin VK. Your physician has determined that this is the best antibiotic for your condition. Pen VK can be taken with meals, however more of the antibiotic gets into the bloodstream if it's taken on an empty stomach. Penicillin usually has no side effects. However, allergy to penicillins is common. If you have had an allergic reaction to any drug of the penicillin family, you should never take any other penicillin. Notify your doctor at once if you develop hives, itching, swelling, faintness, or shortness of breath. Acetaminophen Acetaminophen may be taken for pain relief or fever control. It's much safer than aspirin, offering a wider range of "safe" dosages. It is safe during . Some brand names are Tylenol, Panadol, Datril, Anacin 3, Tempra, and Liquiprin. Acetaminophen can be repeated every four hours. The following are maximum recommended dosages: WEIGHT Dose Drops Elixir Chewable( 80mg) (LBS.) drprs=droppers tsp=teaspoon 6 40 mg .4 ml (1/2) 6-11 80 mg .8 ml (full) 1/2 tsp 1 tab 12-16 120 mg 1 1/2 drprs 3/4 tsp 1 1/2 tabs 17-23 160 mg 2 drprs 1 tsp 2 tabs 24-30 240 mg 3 drprs 1 1/2 tsp 3 tabs 30-35 320 mg 2 tsp 4 tabs 36-41 360 mg 2 1/4 tsp 4 1 /2 tabs 42-47 400 mg 2 1/2 tsp 5 tabs 48-53 480 mg 3 tsp 6 tabs 54-59 520 mg 3 1/4 tsp 6 1 /2 tabs 60-64 560 mg 3 1/2 tsp 7 tabs 65-70 600 mg 3 3/4 tsp 7 1 /2 tabs 71-76 640 mg 4 tsp 8 tabs 77-82 720 mg 4 1/2 tsp 9 tabs 83-88 800 mg 5 tsp 10 tabs >89 pounds or adults 650 mg to 900 mg Acetaminophen can be repeated every four hours. Maximum daily dose not to exceed 4000 mg. These maximum recommended dosages are slightly higher than the dosages written on the product container, but these dosages are very safe and well below the toxic dosage for acetaminophen. You have been given a syringe of viscous lidocaine. Please use a small amount of this viscous lidocaine to the area of your teeth and gums that is painful every 1-2 hours. This is actual lidocaine and will numb the gum the lip and the tongue so be aware that you do not to your lips or gums. Please follow-up with your [facility] tomorrow as scheduled and call a dentist to follow-up with the dentist as soon as possible to treat these teeth. FOLLOW-UP CARE: You have been referred for follow-up care to the dentists listed below. Call the dentists office for an appointment as you were instructed or within the next two days. If you experience worsening or a significant change in your symptoms, notify the physician immediately or return to the Emergency Department at any time for re-evaluation. [facility] [address] [place], [place] [phone] [facility] [address] [place] [address] [facility] [address] [facility] (4[facility]) [facility] [address] [facility] [email or web address] [facility] [address] [place] [address] Saturday- 8:00am to 5:00 pm Will see patients from other [facility]. Charges based on income and family size and accepts Medicare, Medicaid, and Insurances Will pull molars [facility] Student Clinics [facility] [address] Hours of Operation 8:00 am - 4:30 pm weekdays The following dental offices accept Medicaid: [facility] Dr. Gutiérrez Dr. King Dr. [place] Dr. Foley Long Fernandez, Franca, and Deanne oral surgery Dr. Childs ([place]) Dr. Monge ([place]) [facility] Drs. Alcala ([place]) Dr. Ingram ([place]) [facility] Dr. Poe ([place]) Drs. Gr and ([place]) Medicaid Care Line Prescriptions: Penicillin V Potassium [Penicillin Vk 500 mg Tablet] 500 mg PO BID #20 tablet Forms: Smoking Cessation Education Referrals: COLE MORAN MD [Primary Care Provider] - Follow up tomorrow
== END 2017-10-24 17:44 | disposition home or self-care (01) ==
LOC: ER 16:22
DX: O16.3 Unspecified maternal hypertension, third trimester (principal); O26.893 Other specified pregnancy related conditions, third trimester; K08.89 Other specified disorders of teeth and supporting structures; K02.9 Dental caries, unspecified; O99.333 Smoking (tobacco) complicating pregnancy, third trimester; Z3A.31 31 weeks gestation of pregnancy
CPT/HCPCS: 99282; J3490 ×2

== ENCOUNTER 2017-10-26 12:55 | Emergency (ER) | payer MEDICAID ==
[2017-10-26 13:04] VITALS: BP 126/89
[2017-10-26] MEDS ORDERED: CLINDAMYCIN HCL 150 MG CAPSULE PO ONE (13:35)
[2017-10-26] MEDS ORDERED: LIDOCAINE 2% VISCOUS SOLN 20 ML UDCUP PO ONE (13:37)
--- NOTE | 2017-10-26 13:42 | ER Document Report ---
ED Oral Problem - General Chief Complaint: Mouth Problem Stated Complaint: GUM PAIN Time Seen by Provider: 10/26/17 13:26 Mode of Arrival: Ambulatory Information source: Patient Notes: 27-year-old female presents to ED for complaint of continued gum pain. She was seen here on for the same pain. She has multiple decayed teeth that are many of them broken off on the right upper jaw. She states the ibuprofen and Tylenol are not helping with her pain and she is used to viscous lidocaine and she is still having too much pain to even sleep. She is 31 weeks . She did go to the [facility] and they told her to call the dentist and have the dentist call the [facility] if they did not want to take care of her teeth while she was . Patient states she knows that she is and she knows no one likes to give her Percocet but she is already had Percocet this please give her enough Percocet to sleep. TRAVEL OUTSIDE OF THE [place] IN LAST 30 DAYS: No - HPI Patient complains to provider of: Toothache Onset: Other - Chronic Onset: Gradual Quality of pain: Sharp, Throbbing Severity: Severe Pain Level: 5 Associated symptoms: Toothache Worsened by: Cold Relieved by: Nothing Similar symptoms previously: Yes Recently seen / treated by doctor/dentist: Yes - Related Data Allergies/Adverse Reactions: aspirin [Aspirin] Allergy (Intermediate, Verified 10/26/17 12:56) Facial swelling diphenhydramine HCl [From Benadryl] Allergy (Intermediate, Verified 10/26/17 12: 56) Facial swelling Sulfa (Sulfonamide Antibiotics) Allergy (Verified 10/26/17 12:56) unknown Past Medical History - General Information source: Patient - Social History Smoking Status: Current Every Day Smoker Cigarette use (# per day): Yes Chew tobacco use (# tins/day): No Smoking Education Provided: Yes - 4 minutes Frequency of alcohol use: None Drug Abuse: None Lives with: Family Family History: Hypertension, Malignancy, Thyroid Disfunction, Other - kidney disease - Past Medical History Cardiac Medical History: Reports: Hx Hypertension - during Pulmonary Medical History: Reports: None EENT Medical History: Reports: None Neurological Medical History: Reports: None Endocrine Medical History: Reports: None Renal/ Medical History: Reports: None Malignancy Medical History: Reports: None GI Medical History: Reports: None Musculoskeltal Medical History: Reports Hx Musculoskeletal Trauma Skin Medical History: Reports None Psychiatric Medical History: Reports: Hx Anxiety, Hx Bipolar Disorder - no meds , Hx Depression - no meds Traumatic Medical History: Reports: None Infectious Medical History: Reports: None Past Surgical History: Reports: Hx Section, Hx Gynecologic Surgery, Hx Kidney (Renal Surgery) - Immunizations Immunizations up to date: Yes Hx Diphtheria, Pertussis, Tetanus Vaccination: Yes Hx Pneumococcal Vaccination: 02/03/14 Review of Systems - Review of Systems Constitutional: No symptoms reported EENT: Mouth pain, Dental problem Cardiovascular: No symptoms reported Respiratory: No symptoms reported Gastrointestinal: No symptoms reported Genitourinary: No symptoms reported Female Genitourinary: No symptoms reported Musculoskeletal: No symptoms reported Skin: No symptoms reported Hematologic/Lymphatic: No symptoms reported Neurological/Psychological: No symptoms reported -: Yes All other systems reviewed and negative Physical Exam - Vital signs Vitals: Temp Pulse Resp BP Pulse Ox 98.5 F 86 20 126/89 H 99 10/26/17 13:03 10/26/17 13:03 10/26/17 13:03 10/26/17 13:03 10/26/17 13:03 Interpretation: Normal - General General appearance: Appears well, Alert - HEENT Head: Normocephalic, Atraumatic Eyes: Normal Pupils: PERRL Ears: Normal External canal: Normal Tympanic membrane: Normal Sinus: Normal Nasal: Normal Mouth/Lips: Caries - Multiple caries with gingivitis multiple decayed teeth that are broken off Pharynx: Normal Neck: Anterior cervical chain - Respiratory Respiratory status: No respiratory distress Chest status: Nontender Breath sounds: Normal Chest palpation: Normal - Cardiovascular Rhythm: Regular Heart sounds: Normal auscultation Murmur: No - Abdominal Inspection: Gravid female - In 1 weeks Distension: No distension Bowel sounds: Normal Tenderness: Nontender Organomegaly: No organomegaly - Back Back: Normal, Nontender - Extremities General upper extremity: Normal inspection, Nontender, Normal color, Normal ROM , Normal temperature General lower extremity: Normal inspection, Nontender, Normal color, Normal ROM , Normal temperature, Normal weight bearing. No: Haile's sign - Neurological Neuro grossly intact: Yes Cognition: Normal Orientation: AAOx4 [place] Coma Scale Eye Opening: Spontaneous David Coma Scale Verbal: Oriented David Coma Scale Motor: Obeys Commands David Coma Scale Total: 15 Speech: Normal Motor strength normal: LUE, RUE, LLE, RLE Sensory: Normal - Psychological Associated symptoms: Normal affect, Normal mood - Skin Skin Temperature: Warm Skin Moisture: Dry Skin Color: Normal Course - Re-evaluation Re-evalutation: 10/26/17 16:11 Discussed with patient risks and benefits of any narcotic when she is . Explained the patient the concerns of the feet is getting the Percocet that she is getting. She states that is not doing the fetus any good if she cannot sleep and cannot deal with life at this pain. Patient was written a prescription for 2 Percocet 1 to take tonight to sleep in 1 to take tomorrow. She was instructed to call the dentist Saturday morning and get a an appointment to have her teeth care for as soon as possible. I explained to the patient it is not healthy for her or the baby to be taken narcotics when she is 31 weeks . Patient did go to the [facility] since I saw her on and the OB/ [employer] told her she could have sedation to have her teeth cared for. - Vital Signs Vital signs: Temp Pulse Resp BP Pulse Ox 98.5 F 86 20 126/89 H 99 10/26/17 13:03 10/26/17 13:03 10/26/17 13:03 10/26/17 13:03 10/26/17 13:03 Discharge - Discharge Clinical Impression: Pain due to dental caries, 31 weeks gestation of Condition: Stable Disposition: HOME, SELF-CARE Additional Instructions: TOOTHACHE: Your pain is due to dental decay. The tooth must be repaired in order for you to feel better. You will, therefore, be referred to a dentist. We do not have dentists on the staff at [facility]. Severe swelling or drainage around a tooth usually means a dental abscess. This also requires evaluation and treatment by the dentist, but antibiotics may be prescribed while awaiting dental treatment. You should be rechecked immediately if you develop major swelling of the face, increasing pain, a lump in the jaw or gums, headache, difficulty swallowing, or fever. ORAL NARCOTIC MEDICATION: You have been given a prescription for 2 percocet to take at night for pain control. This medication is a narcotic. It's best taken with food, as nausea can result if taken on an empty stomach. Don't operate machinery or drive within six hours of taking this medication. Do not combine this medicine with alcohol, or with any medication which can cause sedation (such as cold tablets or sleeping pills) unless you get permission from the physician. Narcotics tend to cause constipation. If possible, drink plenty of fluids and eat a diet high in fiber and fruits. Please be aware that prescription narcotics also have the potential for abuse. People become addicted to these medications because of the general sense of wellbeing that they induce. This feeling along with a significant reduction in tension, anxiety, and aggression provides a stimulating seductive quality to these drugs. Once your pain is under control, we encourage you to discard your unused narcotics. CLINDAMYCIN: You have been given a prescription for the antibiotic clindamycin. It is often prescribed for infections in the mouth, such as dental infections or abscesses, and for skin infections due to MRSA. It's important that you take all the medication, unless instructed otherwise by your physician. Failure to complete the entire course can result in relapse of your condition. Common side effects of antibiotics include nausea, intestinal cramping, or diarrhea. Women may develop vaginal yeast infections, and babies can get yeast (thrush) in the mouth following the use of antibiotics. Contact your physician if you develop significant side effects from this medication. Allergy to this antibiotic can result in hives, wheezing, faintness, or itching. If symptoms of allergy occur, stop the medication and call the doctor. FOLLOW-UP CARE: You have been referred for follow-up care to the dentists listed below. Call the dentists office for an appointment as you were instructed or within the next two days. If you experience worsening or a significant change in your symptoms, notify the physician immediately or return to the Emergency Department at any time for re-evaluation. [facility] [address] [place], [place] [facility] [address] [place] [address] [facility] [address] [facility] [address] [facility] [address] [email or web address] [facility] [address] [place] [address] Saturday- 8:00am to 5:00 pm Will see patients from other [facility]. Charges based on income and family size and accepts Medicare, Medicaid, and Insurances Will pull molars [facility] Student [facility] [address] Hours of Operation 8:00 am - 4:30 pm weekdays The following dental offices accept Medicaid: [facility] Dr. Gutiérrez Dr. King Dr. Kirkland Dr. Foley Long Fernandez, Franca, and Deanne oral surgery Dr. Childs ([place]) Dr. Monge ([place]) [facility] Drs. Alcala ([place]) Dr. Ingram ([place]) [facility] Dr. Poe ([place]) Drs. Gr and ([place]) Medicaid Care Line Prescriptions: Clindamycin HCl [Cleocin 300 mg Capsule] 300 mg PO Q6 #28 capsule Oxycodone HCl/Acetaminophen [Percocet 5-325 mg Tablet] 1 tab PO HSP PRN #2 tab PRN Reason: Forms: Elevated Blood Pressure, Smoking Cessation Education Referrals: COLE MORAN MD [Primary Care Provider] - Follow up as needed
== END 2017-10-26 13:53 | disposition home or self-care (01) ==
LOC: ER 12:55
DX: O26.93 Pregnancy related conditions, unspecified, third trimester (principal); K02.9 Dental caries, unspecified; F17.200 Nicotine dependence, unspecified, uncomplicated; Z3A.31 31 weeks gestation of pregnancy
CPT/HCPCS: 99406; 99282; J3490 ×2

== ENCOUNTER 2017-11-22 15:59 | Outpatient (CLI) | payer MEDICAID ==
[2017-11-22 17:04] LABS: APPEARANCE,URINE SLIGHTLY-CLOUDY; BILIRUBIN,URINE NEGATIVE (NEGATIVE); COLOR,URINE YELLOW; GLUCOSE, URINE NEGATIVE (NEGATIVE); KETONES,URINE NEGATIVE (NEGATIVE); LEUKOCYTE ESTERASE,URINE SMALL (NEGATIVE); NITRITE,URINE NEGATIVE (NEGATIVE); PROTEIN,URINE NEGATIVE (NEGATIVE); URINE SPECIFIC GRAVITY 1.013
[2017-11-22] MEDS ORDERED: HYDROXYZINE PAMOATE 50 MG CAPSULE PO ONE (17:12)
[2017-11-22] MEDS ORDERED: HYDROXYZINE PAMOATE 50 MG CAPSULE ONE (17:13)
[2017-11-22 17:14] LABS: URINE AMPHETAMINES SCREEN NEGATIVE; URINE BARBITURATES SCREEN NEGATIVE; URINE BENZODIAZEPINES SCREEN NEGATIVE; URINE COCAINE SCREEN NEGATIVE; URINE MARIJUANA (THC) SCREEN NEGATIVE; URINE METHADONE SCREEN NEGATIVE; URINE PHENCYCLIDINE SCREEN NEGATIVE
--- NOTE | 2017-11-22 17:49 | Non Stress Test Report ---
Non Stress Test Datetime Report Generated by CPN: 11/22/2017 17:48 DEMOGRAPHIC EGA NST: 34.4 INDICATION Indication for Study: Ordered by Provider; Other Indication for Study (NST) Other: Repeat NST MONITORING Monitor Explained: Monitor Explained; Test Explained; Patient Verbalized Understanding Time on Monitor: 11/22/2017 16:25 Time off Monitor: 11/22/2017 17:13 NST Duration: 48 NST INTERVENTIONS NST Interventions: PO Hydration; Reposition Patient Physician Notified NST: Dr Oh BABY A: [id number] BABY A Movement : Present Contraction Frequency : irritability FHR Baseline : 130 Accelerations : 15X15 Decelerations : None Variability : Moderate 6-25bpm NST Review: Meets Criteria for Reactive NST NST Review and Verified By : Aicha Fanavaandrew RN NST Results: Reactive NST REPORT Report Trigger: Send Report
== END 2017-11-22 17:33 | disposition home or self-care (01) ==
LOC: LC 15:59
PROVIDERS: ATTEND Obstetrics & Gynecology
PROC: 4A1HXCZ Monitoring of Products of Conception, Cardiac Rate, External Approach (ICD-10-PCS; principal; 2017-11-22)
DX: Z34.93 Encounter for supervision of normal pregnancy, unspecified, third trimester (principal)
CPT/HCPCS: 59025; 81001; 80307; J3490

== ENCOUNTER 2018-11-28 23:16 | Emergency (ER) | payer MEDICAID ==
[2018-11-29] MEDS ORDERED: KETOROLAC TROMETHAMINE 60 MG/2 ML SDV IM ONE (04:07)
[2018-11-29] MEDS ORDERED: DEXAMETHASONE SOD PHOS INJ 10 MG/1 ML VIAL IM ONE (04:07)
--- NOTE | 2018-11-29 04:25 | ER Document Report ---
Entered by CYRUS CHARLTON SCRIBE 11/29/18 0407 Acting as scribe for:TRACY PERAZA DO ED ENT - General Chief Complaint: Fever Stated Complaint: FEVER, PUSS COMING FROM THROAT Time Seen by Provider: 11/29/18 04:00 Primary Care Provider: HARSHIL ADAME MD [Primary Care Provider] - Follow up as needed Mode of Arrival: Ambulatory Information source: Patient Notes: Patient is a 28-year-old female who presents to the emergency department today with complaints of a 2-day history of fevers with associated sore throat and nasal congestion both of which began today. Patient states her temperatures has has gotten up to 102 F. Patient states that she was eating Ramen noodles today and she felt she could not swallow them stating they "got stuck". Patient states she has been taking Motrin and TheraFlu at home. Patient complains of a slight headache now. Patient denies any ear pain, cough, nausea, vomiting, diarrhea, or dysuria. TRAVEL OUTSIDE OF THE [place] IN LAST 30 DAYS: No - Related Data Allergies/Adverse Reactions: aspirin [Aspirin] Allergy (Intermediate, Verified 11/22/17 16:30) Facial swelling diphenhydramine HCl [From Benadryl] Allergy (Intermediate, Verified 11/22/17 16:30) Facial swelling Sulfa (Sulfonamide Antibiotics) Allergy (Verified 11/22/17 16:30) unknown Past Medical History - General Information source: Patient - Social History Smoking Status: Current Every Day Smoker Cigarette use (# per day): Yes Chew tobacco use (# tins/day): No Frequency of alcohol use: None Drug Abuse: None Lives with: Family Family History: Reviewed & Not Pertinent, Hypertension, Malignancy, Thyroid Disfunction, Other - kidney disease - Past Medical History Cardiac Medical History: Reports: Hx Hypertension - during Musculoskeletal Medical History: Reports Hx Musculoskeletal Trauma Psychiatric Medical History: Reports: Hx Anxiety, Hx Bipolar Disorder - no meds, Hx Depression - no meds Denies: Hx Schizophrenia Past Surgical History: Reports: Hx Section, Hx Gynecologic Surgery, Hx Kidney (Renal Surgery) - Immunizations Immunizations up to date: Yes Hx Diphtheria, Pertussis, Tetanus Vaccination: Yes Hx Pneumococcal Vaccination: 02/03/14 Review of Systems - Review of Systems Constitutional: See HPI, Fever EENT: See HPI, Nose congestion, Throat pain, Difficulty swallowing. denies: Ear pain Cardiovascular: No symptoms reported Respiratory: denies: Cough Gastrointestinal: denies: Diarrhea, Nausea, Vomiting Genitourinary: denies: Dysuria Female Genitourinary: No symptoms reported Musculoskeletal: No symptoms reported Skin: No symptoms reported Hematologic/Lymphatic: No symptoms reported Neurological/Psychological: See HPI, Headaches -: Yes All other systems reviewed and negative Physical Exam - Vital signs Vitals: Temp Pulse Resp BP Pulse Ox 98.2 F 94 14 139/77 H 97 11/28/18 23:27 11/28/18 23:27 11/28/18 23:27 11/28/18 23:27 11/28/18 23:27 - Notes Notes: PHYSICAL EXAM GENERAL: Alert, interacts well. Slightly tearful, appears uncomfortable when discussing her illness. HEAD: Normocephalic, atraumatic. EYES: Pupils equal, round, and reactive to light. Extraocular movements intact. ENT: Oral mucosa moist, tongue midline. Nares patent, no nasal septal hematoma, TM's intact. Clear rhinorrhea bilaterally, right greater than left, turbinate edema bilaterally. No posterior oropharynx exudate, tonsillar hypertrophy bilaterally without exudate. Handling her secretions well, no drooling, no difficulty swallowing. NECK: Full range of motion. Supple. Trachea midline. LUNGS: Clear to auscultation bilaterally, no wheezes, rales, or rhonchi. No respiratory distress. HEART: Regular rate and rhythm. No murmurs, gallops, or rubs. ABDOMEN: Soft, non-tender. Non-distended. Bowel sounds present in all 4 quadrants. No guarding, rigidity, or rebound. EXTREMITIES: Moves all 4 extremities spontaneously. No edema, radial and dorsalis pedis pulses 2/4 bilaterally. No cyanosis. NEUROLOGICAL: Alert and oriented x3. Normal speech. PSYCH: Normal affect, normal mood. SKIN: Warm, dry, normal turgor. No rashes or lesions noted. Course - Re-evaluation Re-evalutation: 11/29/18 04:22 Strep swab negative, tonsils symmetrically enlarged, consistent with viral process, treat with steroids for tonsillar enlargement to provide symptomatic relief, Toradol for pain, takes ibuprofen without difficulty despite aspirin allergy. Discharged home. - Vital Signs Vital signs: Temp Pulse Resp BP Pulse Ox 98.2 F 94 14 139/77 H 97 11/28/18 23:27 11/28/18 23:27 11/28/18 23:27 11/28/18 23:27 11/28/18 23:27 Discharge - Discharge Clinical Impression: Viral upper respiratory illness, Acute viral tonsillitis Condition: Stable Disposition: HOME, SELF-CARE Additional Instructions: Upper Respiratory Illness You have a viral infection of the respiratory passages -- a "cold." This common infection causes nasal congestion, drainage, and often sore throat and cough. It is caused by a virus and is highly contagious. The disease usually lasts a week or more, though the worst symptoms are usually over in 3 or 4 days. There is no "cure" for the viral infection -- it must run its course. If there is a complication, such as bacterial infection in the nose, sinuses, middle ear, or bronchial tubes, antibiotics may be required, but antibiotics won't affect the virus. If you smoke, you should STOP!! Drink plenty of fluids. A humidifier may help. An expectorant medication or decongestant may make you more comfortable. Use acetaminophen or ibuprofen for fever or aches. See the doctor if fever persists over two or three days, if there is any significant worsening of your symptoms, or if you simply fail to improve as expected. Please use nasal saline rinses such as a NetiPot or NeilMed Sinus Rinses. Please use a nasal steroid such as Nasonex 1 squirt per nostril twice a day to decrease any swelling in your nose and congestion. You may use [id number] throat lozenges to decrease your sore throat. You may also gargle saline. Please use ibuprofen (Motrin or Advil) 600-800 mg every 8 hours as needed for pain or fever. You may also use acetaminophen (Tylenol) 1000 mg every 4-6 hours as needed for pain or fever. Please be aware that many medications contain acetaminophen, do not exceed a total of 1000 mg of acetaminophen every 6 hours. Prescriptions: Mometasone Furoate [Nasonex] 1 spray NS Q12 #1 spray.pump Forms: Return to Work Referrals: HARSHIL ADAME MD [Primary Care Provider] - Follow up as needed I personally performed the services described in the documentation, reviewed and edited the documentation which was dictated to the scribe in my presence, and it accurately records my words and actions.
[2018-11-29 05:13] VITALS: BP 132/68
== END 2018-11-29 05:00 | disposition home or self-care (01) ==
LOC: ER 23:16
DX: J06.9 Acute upper respiratory infection, unspecified (principal); B97.89 Other viral agents as the cause of diseases classified elsewhere; J03.90 Acute tonsillitis, unspecified; R50.9 Fever, unspecified; R09.81 Nasal congestion; R51 Headache; R13.10 Dysphagia, unspecified; F17.210 Nicotine dependence, cigarettes, uncomplicated
CPT/HCPCS: 99283; 96372; 87070; 87880; 87077; J1885; J1100

== ENCOUNTER 2019-05-28 10:35 | Emergency (ER) | payer MEDICAID ==
[2019-05-28 10:45] VITALS: BP 114/72
--- NOTE | 2019-05-28 10:56 | ER Document Report ---
HPI - HPI Patient complains to provider of: ankle injury Time Seen by Provider: 05/28/19 10:43 Onset: This morning Onset/Duration: Sudden Quality of pain: Achy Pain Level: 2 Context: Patient states that she was going downstairs and rolled her left ankle. Patient with left lateral ankle tenderness. Patient denies any other injury. Associated Symptoms: Other - left ankle pain Exacerbated by: Standing, Movement, Walking Relieved by: Denies Similar symptoms previously: No Recently seen / treated by doctor: No - ROS ROS below otherwise negative: Yes Systems Reviewed and Negative: Yes All other systems reviewed and negative - REPRODUCTIVE Reproductive: DENIES: : - MUSCULOSKELETAL Musculoskeletal: REPORTS: Extremity pain, Swelling. 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 Lives with: Family Family History: Reviewed & Not Pertinent, Hypertension, Malignancy, Thyroid Disfunction, Other - kidney disease Patient has suicidal ideation: No Patient has homicidal ideation: No - Past Medical History Cardiac Medical History: Reports: Hx Hypertension - during Musculoskeletal Medical History: Reports Hx Musculoskeletal Trauma Psychiatric Medical History: Reports: Hx Anxiety, Hx Bipolar Disorder - no meds, Hx Depression - no meds Past Surgical History: Reports: Hx Section, Hx Gynecologic Surgery, Hx Kidney (Renal Surgery) - Immunizations Immunizations up to date: Yes Hx Diphtheria, Pertussis, Tetanus Vaccination: Yes Hx Pneumococcal Vaccination: 02/03/14 Vertical Provider Document - CONSTITUTIONAL Agree With Documented VS: Yes Exam Limitations: No Limitations General Appearance: WD/WN, No Apparent Distress - INFECTION CONTROL TRAVEL OUTSIDE OF THE [place] IN LAST 30 DAYS: No - HEENT HEENT: Atraumatic, Normocephalic - NECK Neck: Normal Inspection - RESPIRATORY Respiratory: No Respiratory Distress - CARDIOVASCULAR Pulses: Normal: Dorsalis pedis - BACK Back: Normal Inspection - MUSCULOSKELETAL/EXTREMETIES Musculoskeletal/Extremeties: MAEW, Tender - left ankle tenderness over lateral malleolar area with 1+ edema, no deformity, No Edema - NEURO Level of Consciousness: Awake, Alert, Appropriate Motor/Sensory: No Motor Deficit - DERM Integumentary: Warm, Dry, No Rash Course - Vital Signs Vital signs: Temp Pulse Resp BP Pulse Ox 98.4 F 72 16 114/72 100 05/28/19 10:44 05/28/19 10:44 05/28/19 10:44 05/28/19 10:44 05/28/19 10:44 - Diagnostic Test Radiology reviewed: Image reviewed, Reports reviewed Procedures - Immobilization Left Ankle Pre-Proc Neuro Vasc Exam: Normal Immobilizer type: Ankle stirrup Performed by: PCT Post-Proc Neuro Vasc Exam: Normal Alignment checked and good: Yes Discharge - Discharge Clinical Impression: Left ankle sprain Qualifiers: Encounter type: initial encounter Involved ligament of ankle: unspecified ligament Qualified Code(s): S93.402A - Sprain of unspecified ligament of left ankle, initial encounter Condition: Stable Disposition: HOME, SELF-CARE Instructions: Ankle Stirrup Splint ([facility]), Use of Crutches ([facility]), Ice & Elevation ([facility]), Sprained Ankle ([facility]) Additional Instructions: Return immediately for any new or worsening symptoms Followup with your primary care provider, call tomorrow to make a followup appointment Weightbearing as tolerated follow-up with orthopedics for any persistent pain or problems Forms: Return to Work Referrals: HARSHIL ADAME MD [Primary Care Provider] - Follow up as needed ZHANE MARTINEZ MD [ACTIVE PROVISIONAL STAFF] - Follow up as needed [facility] [Provider Group] - Follow up as needed
--- NOTE | 2019-05-28 11:18 | RADIOLOGY REPORT (SQ) ---
EXAM DESCRIPTION: ANKLE LEFT COMPLETE COMPLETED DATE/TIME: 05/28/2019 11:08 am REASON FOR STUDY: rolled ankle, missed a step COMPARISON: None. NUMBER OF VIEWS: Three views. TECHNIQUE: AP, lateral, and oblique radiographic images acquired of the left ankle. LIMITATIONS: None. FINDINGS: MINERALIZATION: Normal. BONES: No acute fracture or dislocation. No worrisome bone lesions. JOINTS: No effusions. SOFT TISSUES: No soft tissue swelling. No foreign body. OTHER: No other significant finding. IMPRESSION: NEGATIVE STUDY OF THE LEFT ANKLE. NO RADIOGRAPHIC EVIDENCE OF ACUTE INJURY. TECHNICAL DOCUMENTATION: JOB ID: [id number] [employer]- All Rights Reserved Reading location - IP/workstation name: [email or web address]
== END 2019-05-28 11:30 | disposition home or self-care (01) ==
LOC: ER 10:35
DX: S93.402A Sprain of unspecified ligament of left ankle, initial encounter (principal); M25.572 Pain in left ankle and joints of left foot; X50.0XXA Overexertion from strenuous movement or load, initial encounter; F17.200 Nicotine dependence, unspecified, uncomplicated
CPT/HCPCS: 99283; 73610; L1902

== ENCOUNTER 2019-06-19 23:44 | Emergency (ER) | payer MEDICAID ==
[2019-06-20] MEDS ORDERED: NORMAL SALINE 1000 ML 1,000 ML IV ONE (00:35)
[2019-06-20] MEDS ORDERED: METOCLOPRAMIDE HCL INJ/PF 10 MG/2 ML SDV IV ONE (00:36)
--- NOTE | 2019-06-20 00:38 | ER Document Report ---
ED Medical Screen (RME) - General Chief Complaint: Abdominal Pain Stated Complaint: ABDOMINAL PAIN,VOMITING Primary Care Provider: HARSHIL ADAME MD [Primary Care Provider] - Follow up as needed Notes: Patient is a 29-year-old white female with no reported past medical history who presents to the emergency department today with a chief complaint of upper abdominal discomfort that began about 2 days ago. She describes it as a blue crabber mping pain in the upper abdomen. States is associated with nausea. She had an unknown name nausea medication that she took x2 at home to get some mild relief. She states tonight at work she could not handle it anymore so she came for evaluation. She does admit that her son was recently sick with a "stomach virus" but she states this feels different. She denies any vomiting or diarrhea. Denies any chest pain or shortness of breath. She admits to subjective fevers at home. No recent travel. Denies chance of . I have treated and performed a rapid initial assessment of this patient. A comprehensive ED assessment and evaluation of the patient, analysis of test results and completion of medical decision making process will be conducted by additional ED providers. PHYSICAL EXAMINATION: GENERAL: Well-appearing, well-nourished and in no acute distress. A&Ox4. Answers questions appropriately. TRAVEL OUTSIDE OF THE [place] IN LAST 30 DAYS: No - Related Data Allergies/Adverse Reactions: aspirin [Aspirin] Allergy (Intermediate, Verified 05/28/19 10:45) Facial swelling diphenhydramine HCl [From Benadryl] Allergy (Intermediate, Verified 05/28/19 10:45) Facial swelling Sulfa (Sulfonamide Antibiotics) Allergy (Verified 05/28/19 10:45) unknown Past Medical History - Past Medical History Cardiac Medical History: Reports: Hx Hypertension - during Denies: Hx Congestive Heart Failure, Hx Heart Attack Pulmonary Medical History: Denies: Hx Asthma, Hx Bronchitis, Hx COPD, Hx Pneumonia, Hx Tuberculosis Neurological Medical History: Denies: Hx Seizures, Hx Parkinson's Disease Renal/ Medical History: Denies: Hx End Stage Renal Disease, Hx Kidney Stones, Hx Peritoneal Dialysis GI Medical History: Denies: Hx Cirrhosis, Hx Gastroesophageal Reflux Disease, Hx Ulcer Musculoskeltal Medical History: Denies Hx Arthritis, Denies Hx Multiple Sclerosis, Reports Hx Musculoskeletal Trauma Psychiatric Medical History: Reports: Hx Anxiety, Hx Bipolar Disorder - no meds, Hx Depression - no meds Denies: Hx Schizophrenia Past Surgical History: Reports: Hx Section, Hx Gynecologic Surgery, Hx Kidney (Renal Surgery) - Immunizations Immunizations up to date: Yes Hx Diphtheria, Pertussis, Tetanus Vaccination: Yes Physical Exam - Vital signs Vitals: Temp Pulse Resp BP Pulse Ox 99.2 F 71 20 153/102 H 100 06/19/19 23:49 06/19/19 23:49 06/19/19 23:49 06/19/19 23:49 06/19/19 23:49 Course - Vital Signs Vital signs: Temp Pulse Resp BP Pulse Ox 99.2 F 71 20 153/102 H 100 06/19/19 23:49 06/19/19 23:49 06/19/19 23:49 06/19/19 23:49 06/19/19 23:49 Doctor's Discharge - Discharge Referrals: HARSHIL ADAME MD [Primary Care Provider] - Follow up as needed
[2019-06-20] MEDS ORDERED: ONDANSETRON 4 MG TAB.RAPDIS PO ONE (00:39)
[2019-06-20 01:00] LABS: ABSOLUTE EOSINOPHILS # (AUTO) 0.2 10^3/uL (0.0-0.6); ABSOLUTE LYMPHOCYTES (AUTO) 1.7 10^3/uL (0.5-4.7); ABSOLUTE MONOCYTES (AUTO) 0.3 10^3/uL (0.1-1.4); ABSOLUTE NEUT (AUTO) 2.1 10^3/uL (1.7-8.2); BASOPHILS % (AUTO) 0.5 % (0-2); EOSINOPHILS % (AUTO) 4.5 % (0-6); HEMOGLOBIN 11.8 g/dL (12.0-15.5); LYMPHOCYTES % (AUTO) 39.1 % (13-45); MEAN CORPUSCULAR HEMOGLOBIN 25.4 pg (27.0-33.4); MEAN CORPUSCULAR HGB CONC 32.7 g/dL (32.0-36.0); MEAN CORPUSCULAR VOLUME 78 fl (80-97); MONOCYTES % (AUTO) 7.7 % (3-13); PLATELET COUNT 233 10^3/uL (150-450); RED BLOOD COUNT 4.64 10^6/uL (3.72-5.28); RED CELL DISTRIBUTION WIDTH 14.6 % (11.5-14.0); SEGMENTED NEUTROPHILS % (AUTO) 48.2 % (42-78); TOTAL CELLS COUNTED % (AUTO) 100 %; WHITE BLOOD COUNT 4.3 10^3/uL (4.0-10.5)
[2019-06-20 01:07] LABS: APPEARANCE,URINE SLIGHTLY-CLOUDY; BILIRUBIN,URINE NEGATIVE (NEGATIVE); COLOR,URINE AMBER; GLUCOSE, URINE NEGATIVE (NEGATIVE); KETONES,URINE NEGATIVE (NEGATIVE); LEUKOCYTE ESTERASE,URINE SMALL (NEGATIVE); NITRITE,URINE POSITIVE (NEGATIVE); PROTEIN,URINE NEGATIVE (NEGATIVE); URINE SPECIFIC GRAVITY 1.021; UROBILINOGEN,URINE NEGATIVE mg/dL (<2.0)
[2019-06-20 01:19] LABS: ALBUMIN 4.2 g/dL (3.5-5.0); ALKALINE PHOSPHATASE 88 U/L (38-126); ANION GAP 7 (5-19); ASPARTATE AMINO TRANSFERASE 21 U/L (14-36); BILIRUBIN,TOTAL 0.2 mg/dL (0.2-1.3); BLOOD UREA NITROGEN 10 mg/dL (7-20); CALCIUM 9.1 mg/dL (8.4-10.2); CARBON DIOXIDE 29 mmol/L (22-30); CHLORIDE 103 mmol/L (98-107); GLUCOSE 92 mg/dL (75-110); TOTAL PROTEIN 7.2 g/dL (6.3-8.2)
[2019-06-20] MEDS ORDERED: LIDOCAINE 2% VISCOUS SOLN 15 ML UDCUP PO ONE (03:44)
[2019-06-20] MEDS ORDERED: METOCLOPRAMIDE HCL ORAL SOLN 10 MG/10 ML UDCUP PO ONE (03:46)
--- NOTE | 2019-06-20 04:50 | ER Document Report ---
Entered by MIRNA SORIA SCRIBE 06/20/19 0330 Acting as scribe for:ALVARO DENNIS IV, MD ED GI/ - General Chief Complaint: Abdominal Pain Stated Complaint: ABDOMINAL PAIN,VOMITING Time Seen by Provider: 06/20/19 03:28 Primary Care Provider: HARSHIL ADAME MD [Primary Care Provider] - Follow up as needed Mode of Arrival: Ambulatory Information source: Patient Notes: This 29 year old female patient presents to the ED today with complaints of upper abdominal pain/cramping with associated intermittent nausea that started x2 days ago. Patient states that took x2 pills of nausea medication left over from a x2 month old prescription to get some relief. Patient states that she could not tolerate the pain while she was at work tonight, so she came to the ED for evaluation. Patient notes that her son had a "stomach virus" for the past x3-4 days with vomiting and diarrhea, but states that she may have something different. Patient states that the Reglan she received in triage provided no relief. Patient reports vomiting, body aches, and subjective fevers. Patient denies chest pain, shortness of breath, or diarrhea. TRAVEL OUTSIDE OF THE [place] IN LAST 30 DAYS: No - Related Data Allergies/Adverse Reactions: aspirin [Aspirin] Allergy (Intermediate, Verified 05/28/19 10:45) Facial swelling diphenhydramine HCl [From Benadryl] Allergy (Intermediate, Verified 05/28/19 10:45) Facial swelling Sulfa (Sulfonamide Antibiotics) Allergy (Verified 05/28/19 10:45) unknown Home Medications: suboxone. vyvanse Past Medical History - General Information source: Patient - Social History Smoking Status: Never Smoker Cigarette use (# per day): No Chew tobacco use (# tins/day): No Smoking Education Provided: No Family History: Reviewed & Not Pertinent, Hypertension, Malignancy, Thyroid Disfunction, Other - kidney disease Patient has suicidal ideation: No Patient has homicidal ideation: No - Past Medical History Cardiac Medical History: Reports: Hx Hypertension - during Musculoskeletal Medical History: Reports Hx Musculoskeletal Trauma Psychiatric Medical History: Reports: Hx Anxiety, Hx Bipolar Disorder - no meds, Hx Depression - no meds Past Surgical History: Reports: Hx Section - x3, Hx Gynecologic Surgery, Hx Kidney (Renal Surgery) - Immunizations Immunizations up to date: Yes Hx Diphtheria, Pertussis, Tetanus Vaccination: Yes Hx Pneumococcal Vaccination: 02/03/14 Review of Systems - Review of Systems Constitutional: See HPI, Fever EENT: No symptoms reported Cardiovascular: See HPI. denies: Chest pain Respiratory: See HPI. denies: Short of breath Gastrointestinal: See HPI, Abdominal pain, Nausea, Vomiting. denies: Diarrhea Genitourinary: No symptoms reported Female Genitourinary: No symptoms reported Musculoskeletal: See HPI, Other - Body aches Skin: No symptoms reported Hematologic/Lymphatic: No symptoms reported Neurological/Psychological: No symptoms reported -: Yes All other systems reviewed and negative Physical Exam - Vital signs Vitals: Temp Pulse Resp BP Pulse Ox 99.2 F 71 20 153/102 H 100 06/19/19 23:49 06/19/19 23:49 06/19/19 23:49 06/19/19 23:49 06/19/19 23:49 Interpretation: Hypertensive - General General appearance: Alert - HEENT Head: Normocephalic, Atraumatic Eyes: Normal Pupils: PERRL - Respiratory Respiratory status: No respiratory distress Chest status: Nontender Breath sounds: Normal Chest palpation: Normal - Cardiovascular Rhythm: Regular Heart sounds: Normal auscultation Murmur: No Felicity's crunch: No Gallop: None auscultated - Abdominal Inspection: Normal Distension: No distension Bowel sounds: Normal Tenderness: Tender - Tender to palpate in epigastric region. Organomegaly: No organomegaly - Back Back: Normal, Nontender - Extremities General upper extremity: Normal inspection General lower extremity: Normal inspection - Neurological Neuro grossly intact: Yes - Psychological Associated symptoms: Normal affect, Normal mood - Skin Skin Temperature: Warm Skin Moisture: Dry Skin Color: Normal Course - Re-evaluation Re-evalutation: 06/20/19 05:41 Results of ED MSE discussed with patient. Patient states she is feeling better after GI cocktail. All questions were answered prior to discharge. Emergency signs and symptoms, reasons to return to the emergency department discussed with patient. - Vital Signs Vital signs: Temp Pulse Resp BP Pulse Ox 98.0 F 58 L 21 H 125/83 99 06/20/19 02:34 06/20/19 02:34 06/20/19 05:02 06/20/19 05:02 06/20/19 05:02 - Laboratory Result Diagrams: 06/20/19 00:47 06/20/19 00:47 Laboratory results interpreted by me: 06/20/19 06/20/19 00:47 00:47 Hgb 11.8 L MCV 78 L MCH 25.4 L RDW 14.6 H Urine Blood MODERATE H Urine Nitrite POSITIVE H Ur Leukocyte Esterase SMALL H Discharge - Discharge Clinical Impression: Acute gastritis Qualifiers: Gastritis type: unspecified gastritis Gastritis bleeding: without bleeding Qualified Code(s): K29.00 - Acute gastritis without bleeding Condition: Good Disposition: HOME, SELF-CARE Instructions: Abdominal Pain ([facility]) Additional Instructions: Return to the Emergency Department without delay if any worse. HOME CARE INSTRUCTIONS & INFORMATION: Thank you for choosing us for your medical needs. We hope you're satisfied with the care you received. After you leave, you must properly care for your problem and, at the same time, observe its progress. Any condition can change. Some illnesses can change rapidly over hours or days. If your condition worsens, return to the Emergency Department or see your physician promptly. ABOUT YOUR X-RAYS AND EKG'S: If you had an EKG or X-rays taken, they have been read by the Emergency Physician. The X-rays and EKG's will also be read by a Radiologist or Senior Examiner within 24 hours. If discrepancies are noted, you will be notified by telephone. Please be certain the ED has a correct telephone number & address where you can be reached. Also, realize that some fractures or abnormalities do not show up on initial X-rays. If your symptoms continue, see your physician. ABOUT YOUR LABORATORY TEST: If you had laboratory tests, the results have been reviewed by the Emergency Physician. Some test results (for example cultures) may not be available for several days. You will be contacted if any test result shows you need additional treatment. Please be certain the ED has a correct telephone number and address where you can be reached. ABOUT YOUR MEDICATIONS: You will receive instructions on how to take your medi cine on the prescription label you receive. Additional information may be provided by the Pharmacy. If you have questions afterwards, call the ED for clarification or further instructions. Some prescribed medications may cause drowsiness. Do not perform tasks such as driving a car or operating machinery without consulting your Pharmacist. If you feel you need a refill of pain medication, your condition will need re-evaluation. Please do not call for a refill of any medication. ABOUT YOUR SIGNATURE: Signature of this document acknowledges to followin. Understanding that you received emergency treatment and that you may be released before al medical problems are known or treated. Please be certain the ED has a correct phone number & address where you can be reached. 2. Acknowledgement that you will arrange for follow-up care as recommended. 3. Authorization for the Emergency Physician to provide information to your follow-up Physician in order to maximize your care. AT ANY TIME, IF YOUR SYMPTOMS CHANGE SIGNIFICANTLY OR WORSEN OR YOU DEVELOP NEW SYMPTOMS, RETURN TO THE EMERGENCY DEPARTMENT IMMEDIATELY FOR RE-EVALUATION. OUR GOAL IS TO PROVIDE EXCELLENT MEDICAL CARE! WE HOPE THAT WE HAVE MET YOUR EXPECTATIONS DURING YOUR EMERGENCY DEPARTMENT VISIT AND THAT YOU FEEL YOU HAVE RECEIVED EXCELLENT CARE! Referrals: HARSHIL ADAME MD [Primary Care Provider] - Follow up as needed I personally performed the services described in the documentation, reviewed and edited the documentation which was dictated to the scribe in my presence, and it accurately records my words and actions.
[2019-06-20] MEDS ORDERED: MAG HYDROX/AL HYDROX/SIMETH SUSP 30 ML UDCUP PO ONE (05:03)
[2019-06-20] MEDS ORDERED: MAG HYDROX/AL HYDROX/SIMETH SUSP 30 ML UDCUP ONE (05:04)
[2019-06-20] MEDS ORDERED: FAMOTIDINE 20 MG TABLET PO ONE (05:41)
[2019-06-20 06:10] VITALS: BP 110/61
== END 2019-06-20 06:11 | disposition home or self-care (01) ==
LOC: ER 23:44
DX: K29.00 Acute gastritis without bleeding (principal); R10.10 Upper abdominal pain, unspecified; R11.2 Nausea with vomiting, unspecified; Z88.6 Allergy status to analgesic agent; Z88.2 Allergy status to sulfonamides
CPT/HCPCS: 99284; 96361; 96374; 36415; 83690; 85025; 81025; 80053; 81001; J3490 ×4; S0119; J2765; J7030

== ENCOUNTER 2020-01-15 20:53 | Emergency (ER) | payer MEDICAID ==
[2020-01-15] MEDS ORDERED: CETIRIZINE 10 MG TABLET PO ONE (21:18)
[2020-01-15] MEDS ORDERED: ONDANSETRON HCL INJ/PF 4 MG/2 ML SDV IV ONE (21:19)
[2020-01-15] MEDS ORDERED: NORMAL SALINE 1000 ML 1,000 ML IV ONE (21:19)
[2020-01-15] MEDS ORDERED: ACETAMINOPHEN 325 MG TABLET PO ONE (21:21)
--- NOTE | 2020-01-15 21:21 | ER Document Report ---
ED Medical Screen (RME) - General Chief Complaint: Chest Pain Stated Complaint: CHEST PAIN, FEVER, CHILLS, NAUSEA Time Seen by Provider: 01/15/20 21:15 Primary Care Provider: HARSHIL ADAME MD [Primary Care Provider] - Follow up as needed Notes: Patient is a 29-year-old female who presents to the emergency department with a chief complaint of chest pain, generalized body aches, and a fever. Patient states that her symptoms started about 4 days ago. Patient admits to rhinorrhea. She states that she called her primary care provider on the first day of her symptoms and she states, "they said do not worry about it." Patient states that she works at [employer]. She states that she does not know if she has had any contact with anyone who has tested positive for the coronavirus, but she states, "I think to have the virus." Exam: Rhinorrhea noted. I have greeted and performed a rapid initial assessment of this patient. A comprehensive ED assessment and evaluation of the patient, analysis of test results and completion of medical decision making process will be conducted by an additional ED providers. TRAVEL OUTSIDE OF THE [place] IN LAST 30 DAYS: No - Related Data Allergies/Adverse Reactions: aspirin [Aspirin] Allergy (Intermediate, Verified 05/28/19 10:45) Facial swelling diphenhydramine HCl [From Benadryl] Allergy (Intermediate, Verified 05/28/19 10:45) Facial swelling Sulfa (Sulfonamide Antibiotics) Allergy (Verified 05/28/19 10:45) unknown Past Medical History - Past Medical History Cardiac Medical History: Reports: Hx Hypertension - during Denies: Hx Congestive Heart Failure, Hx Heart Attack Pulmonary Medical History: Denies: Hx Asthma, Hx Bronchitis, Hx COPD, Hx Pneumonia, Hx Tuberculosis Neurological Medical History: Denies: Hx Seizures, Hx Parkinson's Disease Renal/ Medical History: Denies: Hx End Stage Renal Disease, Hx Kidney Stones, Hx Peritoneal Dialysis GI Medical History: Denies: Hx Cirrhosis, Hx Gastroesophageal Reflux Disease, Hx Ulcer Musculoskeltal Medical History: Denies Hx Arthritis, Denies Hx Multiple Sclerosis, Reports Hx Musculoskeletal Trauma Psychiatric Medical History: Reports: Hx Anxiety, Hx Bipolar Disorder - no meds, Hx Depression - no meds Denies: Hx Schizophrenia Past Surgical History: Reports: Hx Section - x3, Hx Gynecologic Surgery, Hx Kidney (Renal Surgery) - Immunizations Immunizations up to date: Yes Hx Diphtheria, Pertussis, Tetanus Vaccination: Yes Doctor's Discharge - Discharge Referrals: HARSHIL ADAME MD [Primary Care Provider] - Follow up as needed
[2020-01-15] MEDS ORDERED: ONDANSETRON 4 MG TAB.RAPDIS PO ONE (21:22)
[2020-01-15 22:49] LABS: ABSOLUTE EOSINOPHILS # (AUTO) 0.1 10^3/uL (0.0-0.6); ABSOLUTE LYMPHOCYTES (AUTO) 1.6 10^3/uL (0.5-4.7); ABSOLUTE MONOCYTES (AUTO) 0.8 10^3/uL (0.1-1.4); ABSOLUTE NEUT (AUTO) 9.5 10^3/uL (1.7-8.2); BASOPHILS % (AUTO) 0.2 % (0-2); EOSINOPHILS % (AUTO) 1.2 % (0-6); HEMATOCRIT 37.2 % (36.0-47.0); HEMOGLOBIN 12.8 g/dL (12.0-15.5); LYMPHOCYTES % (AUTO) 13.4 % (13-45); MEAN CORPUSCULAR HEMOGLOBIN 28.1 pg (27.0-33.4); MEAN CORPUSCULAR HGB CONC 34.3 g/dL (32.0-36.0); MEAN CORPUSCULAR VOLUME 82 fl (80-97); MONOCYTES % (AUTO) 6.7 % (3-13); PLATELET COUNT 209 10^3/uL (150-450); RED BLOOD COUNT 4.54 10^6/uL (3.72-5.28); RED CELL DISTRIBUTION WIDTH 14.9 % (11.5-14.0); SEGMENTED NEUTROPHILS % (AUTO) 78.5 % (42-78); TOTAL CELLS COUNTED % (AUTO) 100 %; WHITE BLOOD COUNT 12.1 10^3/uL (4.0-10.5)
[2020-01-15 23:05] LABS: ALKALINE PHOSPHATASE 65 U/L (38-126); ANION GAP 7 (5-19); ASPARTATE AMINO TRANSFERASE 22 U/L (14-36); BILIRUBIN,DIRECT 0.3 mg/dL (0.0-0.4); BILIRUBIN,TOTAL 0.7 mg/dL (0.2-1.3); BLOOD UREA NITROGEN 4 mg/dL (7-20); CALCIUM 8.4 mg/dL (8.4-10.2); CARBON DIOXIDE 26 mmol/L (22-30); CHLORIDE 103 mmol/L (98-107); GLUCOSE 106 mg/dL (75-110); POTASSIUM 3.9 mmol/L (3.6-5.0)
--- NOTE | 2020-01-15 23:21 | RADIOLOGY REPORT (SQ) ---
CLINICAL INDICATION: chest pain; fever. TECHNIQUE: A single portable AP view was obtained of the chest at 2257 hours. COMPARISON: February 03, 2017. FINDINGS: The cardiomediastinal silhouette is normal. The lungs are grossly clear. No evidence of effusion or pneumothorax. The visualized bones are unremarkable. IMPRESSION: No evidence of active intrathoracic disease.
--- NOTE | 2020-01-15 23:30 | ER Document Report ---
ED Flu Like - General Chief Complaint: Nausea/Vomiting Stated Complaint: CHEST PAIN, FEVER, CHILLS, NAUSEA Time Seen by Provider: 01/15/20 21:15 Primary Care Provider: HARSHIL ADAME MD [Primary Care Provider] - Follow up as needed Notes: CHIEF COMPLAINT: Multiple complaints HPI: 29-year-old female presenting to the emergency department with multiple complaints. Patient states 4 days ago she developed generalized body ache. Sore throat. Painful swallowing. No cough chest pain shortness of breath. Has had nausea but no vomiting or diarrhea. No definite fevers in the last 3 days but states she had a fever today with a sore throat became worse. Patient is concerned about COVID-19 ROS: See HPI - all other systems were reviewed and are otherwise negative Constitutional: Positive fever Eyes: no drainage, no blurred vision ENT: no runny nose, positive sore throat Cardiovascular: no chest pain Resp: no SOB, no cough GI: no vomiting, no diarrhea, no abdominal pain, positive nausea : no dysuria Integumentary: no rash Allergy: no hives Musculoskeletal: no extremity pain or swelling Neurological: no numbness/tingling, no weakness MEDICATIONS: I agree with the patient medications as charted by the RN. ALLERGIES: I agree with the allergies as charted by the RN. PAST MEDICAL HISTORY/PAST SURGICAL HISTORY: Reviewed and agree as charted by RN. SOCIAL HISTORY: Reviewed and agree as charted by RN. FAMILY HISTORY: No significant familial comorbid conditions directly related to patient complaint EXAM: Reviewed vital signs as charted by RN. CONSTITUTIONAL: Alert and oriented and responds appropriately to questions. Well-appearing; well-nourished HEAD: Normocephalic; atraumatic EYES: PERRL; Conjunctivae clear, sclerae non-icteric ENT: normal nose; no rhinorrhea; moist mucous membranes; pharynx without lesions noted, no uvula edema or deviation, no tonsillar hypertrophy, phonation normal NECK: Supple without meningismus; non-tender; no cervical lymphadenopathy, no masses CARD: RRR; no murmurs, no clicks, no rubs, no gallops; symmetric distal pulses RESP: Normal chest excursion without splinting or tachypnea; breath sounds clear and equal bilaterally; no wheezes, no rhonchi, no rales, pulse oximetry 98% on room air not hypoxic ABD/GI: Normal bowel sounds; non-distended; soft, non-tender, no rebound, no guarding; no palpable organomegaly or masses. BACK: The back appears normal and is non-tender to palpation, there is no CVA tenderness EXT: Normal ROM in all joints; non-tender to palpation; no cyanosis, no effusions, no edema SKIN: Normal color for age and race; warm; dry; good turgor; no acute lesions noted NEURO: Moves all extremities equally; Motor and sensory function intact PSYCH: The patient's mood and manner are appropriate. Grooming and personal hyg iene are appropriate. MDM: 29-year-old female with multiple complaints including body aches fever sore throat she is concerned for COVID. Initial screening labs placed by the triage process. EKG normal sinus rhythm with a ventricular heart rate of 87, FL 156, QT 356, QTc 429. Interpreted by emergency department physician. There are nonspecific T wave flattening across most leads that are consistent with patient's EKG on review from March 2017. She has no active chest pain. Her complaint primarily is sore throat and body ache. COVID-19 test was ordered and sent. Chest x-ray does not show evidence of infiltrate per the radiologist. Initial screening labs show very mild leukocytosis no other significant abnormalities. We will send a rapid strep on the patient. If negative antic ipate discharge home with COVID-19 precautions. If positive will treat with antibiotics TRAVEL OUTSIDE OF THE [place] IN LAST 30 DAYS: No - Related Data Allergies/Adverse Reactions: aspirin [Aspirin] Allergy (Intermediate, Verified 05/28/19 10:45) Facial swelling diphenhydramine HCl [From Benadryl] Allergy (Intermediate, Verified 05/28/19 10:45) Facial swelling Sulfa (Sulfonamide Antibiotics) Allergy (Verified 05/28/19 10:45) unknown Home Medications: symboxin Past Medical History - Social History Smoking Status: Current Every Day Smoker Chew tobacco use (# tins/day): No Frequency of alcohol use: None Drug Abuse: None Family History: Reviewed & Not Pertinent, Hypertension, Malignancy, Thyroid Disfunction, Other - kidney disease - Past Medical History Cardiac Medical History: Reports: Hx Hypertension - during Denies: Hx Congestive Heart Failure, Hx Heart Attack Pulmonary Medical History: Denies: Hx Asthma, Hx Bronchitis, Hx COPD, Hx Pneumonia, Hx Tuberculosis Neurological Medical History: Denies: Hx Seizures, Hx Parkinson's Disease Renal/ Medical History: Denies: Hx End Stage Renal Disease, Hx Kidney Stones, Hx Peritoneal Dialysis GI Medical History: Denies: Hx Cirrhosis, Hx Gastroesophageal Reflux Disease, Hx Ulcer Musculoskeletal Medical History: Denies Hx Arthritis, Denies Hx Multiple Sclerosis, Reports Hx Musculoskeletal Trauma Psychiatric Medical History: Reports: Hx Anxiety, Hx Bipolar Disorder - no meds, Hx Depression - no meds Denies: Hx Schizophrenia Past Surgical History: Reports: Hx Section - x3, Hx Gynecologic Surgery, Hx Kidney (Renal Surgery) - Immunizations Immunizations up to date: Yes Hx Diphtheria, Pertussis, Tetanus Vaccination: Yes Hx Pneumococcal Vaccination: 02/03/14 Physical Exam - Vital signs Vitals: Temp 100.2 F 01/15/20 21:16 Course - Re-evaluation Re-evalutation: 01/16/20 00:13 Rapid strep is negative will discharge person under investigation. - Vital Signs Vital signs: Temp Pulse Resp BP Pulse Ox 100.2 F 105 H 18 150/55 H 100 01/15/20 21:16 01/15/20 21:20 01/15/20 21:20 01/15/20 21:20 01/15/20 21:20 - Laboratory Result Diagrams: 01/15/20 22:37 01/15/20 22:37 Laboratory results interpreted by me: 01/15/20 01/15/20 22:37 22:37 WBC 12.1 H RDW 14.9 H Absolute Neuts (auto) 9.5 H Seg Neutrophils % 78.5 H Sodium 136.1 L BUN 4 L Discharge - Discharge Clinical Impression: Myalgia, Person under investigation for COVID-19 Vomiting Qualifiers: Vomiting type: unspecified Vomiting Intractability: non-intractable Nausea presence: with nausea Qualified Code(s): R11.2 - Nausea with vomiting, unspecified Condition: Stable Disposition: HOME, SELF-CARE Additional Instructions: Take Zofran for any recurrent nausea or vomiting. Your rapid strep test and other lab work tonight were negative. Chest x-ray was negative. You are considered a person under investigation for COVID-19 at this time, self quarantine at home for the next 48 to 72 hours pending her test result which normally takes 2 to 5 days. You will receive a call from someone at the hospital about your test result Prescriptions: Ondansetron [Zofran Odt 4 mg Tablet] 1 - 2 tab PO Q4H PRN #15 tab.rapdis PRN Reason: For Nausea/Vomiting Referrals: HARSHIL ADAME MD [Primary Care Provider] - Follow up as needed
[2020-01-16 00:21] VITALS: BP 110/56
--- NOTE | 2020-01-18 02:19 | EKG REPORT ---
SEVERITY:- ABNORMAL ECG - SINUS RHYTHM NONSPECIFIC T ABNORMALITIES, ANT-LAT LEADS : Confirmed by: Taz Benson MD 18-Jan-2020 02:19:20
== END 2020-01-16 00:21 | disposition home or self-care (01) ==
LOC: ER 20:53
DX: R11.2 Nausea with vomiting, unspecified (principal); M79.10 Myalgia, unspecified site; J02.9 Acute pharyngitis, unspecified; R11.0 Nausea; F17.200 Nicotine dependence, unspecified, uncomplicated; D72.829 Elevated white blood cell count, unspecified; Z79.899 Other long term (current) drug therapy; Z88.8 Allergy status to other drugs, medicaments and biological substances; Z88.2 Allergy status to sulfonamides; Z20.828 Contact with and (suspected) exposure to other viral communicable diseases
CPT/HCPCS: 93005; 99285; 96360; 36415; 87070; 87880; 85025; 87635; 87077; 80053; 71045; 93010; J3490 ×2; S0119; J7030; C9803

== ENCOUNTER → 2020-03-29 | Outpatient (CLI) | payer MEDICAID | LOC: OD 11:05 | PROVIDERS: ATTEND Pediatrics | DX: Z32.00 Encounter for pregnancy test, result unknown (principal) | CPT/HCPCS: 36415; 84702 ==